=== PATIENT | female | born 1935 | race Caucasian/White ===

== ENCOUNTER → 2016-12-03 | Outpatient (CLI) | payer OTHER ==
[~2016-12-03] MED LIST: ACCL20 PO; ALBUAER2 INH; AVP150 PO; AZMINH INH; PRM625 PO; SYN25 PO
[2016-12-03 14:32] LABS: BLOOD UREA NITROGEN 21 mg/dl (7-18); BUN/CREATININE RATIO 23.3 (10-20); CARBON DIOXIDE 29 mmol/L (21-32); CHLORIDE 105 mmol/L (98-107); CREATININE 0.92 mg/dl (0.60-1.20); GLUCOSE 96 mg/dl (70-99); POTASSIUM 4.2 mmol/L (3.5-5.1); SODIUM 140 mmol/L (136-145)
[2016-12-03 14:43] LABS: ALB/GLOB RATIO 1.4 (0.9-2); ALKALINE PHOSPHATASE 44 U/L (45-117); ALT/SGPT 22 U/L (12-78); AST/SGOT 15 U/L (15-37); CHOLESTEROL 281 mg/dl (0-200); CHOLESTEROL/HDL RATIO 3.5; HDL CHOLESTEROL 81 mg/dl; LDL CHOLESTEROL CALCULATED 171 mg/dl; TRIGLYCERIDES 145 mg/dl (0-150); VERY LOW DENSITY LIPOPROT CALC 29 mg/dl
[2016-12-03 15:09] LABS: CALCIUM 9.5 mg/dl (8.5-10.1)
== END | disposition home or self-care (01) ==
LOC: C.LABBC 09:27
PROVIDERS: ATTEND Internal Medicine
DX: E55.9 Vitamin D deficiency, unspecified (principal)

== ENCOUNTER → 2017-12-24 | Outpatient (CLI) | payer OTHER ==
[2017-12-24 13:37] LABS: BASO % 0.5 %; BASO ABS # 0.03 K/uL (0-0.2); EOS % 5.3 %; EOS ABS # 0.33 K/uL (0-0.5); HEMATOCRIT 38.4 % (37-47); HEMOGLOBIN 12.3 g/dL (12.0-16.0); IG# 0.02 K/uL (0.00-0.02); LYMPH % 24.4 %; LYMPH ABS # 1.51 K/uL (1.2-3.4); MEAN CELL VOLUME 100.5 fL (80-100); MEAN CORPUSCULAR HEMOGLOBIN 32.2 pg (25-34); MEAN PLATELET VOLUME 11.3 fL (7.4-10.4); MONO ABS # 0.62 K/uL (0.11-0.59); NEUT % 59.5 %; NEUT ABS # 3.68 K/uL (1.4-6.5); PLATELET COUNT 181 K/uL (130-400); RED CELL DISTRIBUTION WIDTH CV 13.4 % (11.5-14.5); WHITE BLOOD COUNT 6.19 K/uL (4.8-10.8)
[2017-12-24 14:37] LABS: ALBUMIN 3.9 gm/dl (3.4-5.0); ALKALINE PHOSPHATASE 42 U/L (45-117); ALT/SGPT 23 U/L (12-78); AST/SGOT 17 U/L (15-37); BLOOD UREA NITROGEN 23 mg/dl (7-18); CARBON DIOXIDE 25 mmol/L (21-32); CREATININE 0.94 mg/dl (0.60-1.20); GLUCOSE 87 mg/dl (70-99); POTASSIUM 4.2 mmol/L (3.5-5.1); SODIUM 138 mmol/L (136-145)
[2017-12-24 14:48] LABS: CHOLESTEROL 296 mg/dl (0-200); LDL CHOLESTEROL CALCULATED 186 mg/dl; TOTAL PROTEIN 7.2 gm/dl (6.4-8.2)
== END | disposition home or self-care (01) ==
LOC: C.LABBC 09:24
PROVIDERS: ATTEND Internal Medicine
DX: J45.909 Unspecified asthma, uncomplicated (principal); E03.9 Hypothyroidism, unspecified; E78.5 Hyperlipidemia, unspecified; J44.9 Chronic obstructive pulmonary disease, unspecified; I10 Essential (primary) hypertension; E55.9 Vitamin D deficiency, unspecified

== ENCOUNTER 2022-02-06 09:47 | Inpatient (IN) ==
--- NOTE | 2022-02-03 09:58 | Anesthesiology Consultation ---
Date of Service February 03, 2022 Assessment & Plan (1) Encounter for pre-operative examination: - s/p EGD 01/09/22, no postop issues per anesthesia progress note-diagnosed with pancreatic cancer. - cardio 12/08/21 [facility]: "...loop recorder interrogation 12/01/2021 that had showed persistence of sinus rhythm...right carotid bruit to today's examination...will obtain carotid ultrasound..." - Carotid doppler 12/08/21 R ICA less than 50% stenosis Left ICA no hemodynamically significant stenosis - cardio 03/26/21 [facility]: "...Atrial fibrillation...in her record from [place]...only documented episode...on amiodarone and reduced dose apixaban...No clinical symptoms at the time of her arrhythmia or since. Interrogation of her device today did not reveal any detected arrhythmias...Coronary disease...did not appear to have symptoms of coronary insufficiency or angina leading up to her evaluation...reduced LV systolic function and regional wall motion abnormalities. No current symptoms of coronary disease...known to have worsening asthma with aspirin use...continue her Brilinta and apixaban...ischemic cardiomyopathy: Well compensated currently...on carvedilol, Entresto and spironolactone...scheduled for re-evaluation of her LV function in [place]. 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 Patient vaccinated. Surgeon arranging preop COVID testing, scheduled 01/07/2022. Awaiting results. Chart Review Chart Review: Acceptable Risk for Surgery and Patient NOT seen in Pre Admission Testing History Surgery Operation Date: 02/06/22 14:45 Proposed Procedures p Endoscopic Retrograde Cholangiopancreatogram - Anisha Moulton DO Height/Weight Height: 5 ft 4 in Weight: 51.256 kg Allergies Allergy/AdvReac Type Severity Reaction Status Date / Time NSAIDS (Non-Steroidal Allergy Intermediate uler Verified 01/26/22 10:22 Anti-Inflamma Sulfa (Sulfonamide Allergy Intermediate Difficulty Verified 01/26/22 10:22 Antibiotics) Breathing sulfamethoxazole Allergy Intermediate Difficulty Verified 01/26/22 10:22 Breathing aspirin Allergy Unknown BREATHING Verified 01/26/22 10:22 DIFFICULTIES Penicillins Allergy Unknown AMPICILLIN Verified 01/26/22 10:22 rofecoxib Allergy Unknown RASH AND Verified 01/26/22 10:22 ASTHMA peanut AdvReac Unknown ORAL Verified 01/26/22 10:22 SWELLING soy AdvReac Unknown ORAL Verified 01/26/22 10:22 SWELLING Medications Home Medications Medication Instructions Recorded Confirmed Last Taken apixaban 2.5 mg tablet (Eliquis) 2.5 mg PO BID 02/24/21 02/03/22 01/07/22 cyanocobalamin (vitamin B-12) 1,000 mcg PO QAM 02/24/21 02/03/22 01/08/22 08:00 1,000 mcg capsule sacubitril 24 mg-valsartan 26 mg 1 tab PO QAM 02/24/21 02/03/22 01/08/22 21:00 tablet (Entresto) albuterol sulfate 90 mcg/actuation See Rx Instructions INH .COMPLEX 02/28/21 02/03/22 01/08/22 08:00 aerosol inhaler (Ventolin HFA) PRN #8.5 gm budesonide-formoterol HFA 160 1 puff INHALATION PM g 04/02/21 02/03/22 01/08/22 21:00 mcg-4.5 mcg/actuation aerosol inhaler (Symbicort) cholecalciferol (vitamin D3) 50 3,000 mcg PO QAM cap 04/02/21 02/03/22 Unknown mcg (2,000 unit) capsule Accolate 20 mg tablet (zafirlukast) 20 mg PO BID #180 tab NS 06/30/21 02/03/22 01/09/22 06:00 bisoprolol fumarate 5 mg tablet 5 mg PO QAM 09/22/21 02/03/22 01/08/22 08:00 omeprazole 40 mg capsule,delayed 40 mg PO DAILY PRN 09/22/21 02/03/22 01/09/22 02:00 release spironolactone 25 mg tablet 25 mg PO QAM tab 09/22/21 02/03/22 Unknown atorvastatin 10 mg tablet 20 mg PO QPM tab 12/19/21 02/03/2201/08/22 21:00 clopidogrel 75 mg tablet (Plavix) 75 mg PO QAM 12/19/21 02/03/22 01/07/22 levothyroxine 75 mcg tablet 75 mcg PO QAM 01/07/22 02/03/22 01/09/22 03:00 (Synthroid) vit A 9,650 unit-vit C 195 mg-vit 1 cap PO QAM 01/07/22 02/03/22 01/08/22 08:00 E 95 trao-gjbxze-yxei-zn-photocopying equipment repairer capsule hydrocortisone 2.5 % topical 1 applic TOPICAL BID #453.6 g 01/26/22 02/03/22 Unknown ointment Past Medical History Medical History (Updated 02/03/22 @ 09:51 by Rossana Fields PA-C) Atrial fibrillation with RVR left chest - Loop recorder > follows with Dr. Krishnamurthy > Eliquis CHF (congestive heart failure) EF 60% on 2020 echo Coronary artery disease s/p stent 11/2020 for 99% mid LAD lesion, follows with [facility] History of ischemic cardiomyopathy well compensated per [facility] HTN (hypertension) Hyperlipidemia Hypothyroidism LBBB (left bundle branch block) per records present since at least 11/2020 Osteopenia PAD (peripheral artery disease) Pancreatic cancer Pulmonary hypertension mild, 03/2021 echo Severe chronic obstructive pulmonary disease rare res inh use Past Family History Family History Father , age 50 No problems noted. Mother , age 58-suicide No problems noted. Other Hypertension Multiple sclerosis Prostate cancer Denies family history of Ovarian cancer Breast cancer Lung cancer Colorectal cancer Past Surgical History Surgical History H/O basal cell carcinoma excision History of cataract surgery bilat History of colonoscopy History of hip replacement bilat History of repair of rotator cuff bilat History of total abdominal hysterectomy Hx of angioplasty Jul [address] Krishnamurthy of right leg Stented coronary artery CHEPE to LAD > November 2020 - [facility] with Dr. Hammond Social History Smoking Status: Never smoker Do You Dip or Chew Tobacco: No Hx Alcohol Use: No Alcohol type: beer and wine Hx Substance Use: No substance use type: does not use Lab Results Anesthesia Preop Results Results Anesthesia Widget: WBC 6.60 K/uL (4.8-10.8) 12/26/21 Hgb 10.5 g/dL (12.0-16.0) L 12/26/21 Hct 33.7 % (37-47) L 12/26/21 Plt 196 K/uL (130-400) 12/26/21 Na 135 mmol/L (136-145) L 01/09/22 K 4.7 mmol/L (3.5-5.1) 01/09/22 Cl 103 mmol/L (98-107) 01/09/22 CO2 26 mmol/L (21-32) 01/09/22 BUN 24 mg/dl (6-23) H 01/09/22 Creat 0.91 mg/dl (0.6-1.2) 01/09/22 Glucose Level 110 mg/dl (70-99(Fasting)) H 01/09/22 Testing Electrocardiogram Date: 12/26/21 NSR, rate 75 bpm Left axis deviation LBBB-new since 2009 ECG Chest X-Ray Date: 12/26/21 The cardiac silhouette is mildly enlarged. There is mild emphysema. No pleural effusions. No pneumothorax. The lungs are clear. IMPRESSION: Mild cardiomegaly. Otherwise, no acute process within the chest. Echocardiogram Date: 04/09/21 EF 60% Mild mitral regurgitation Mild pulmonary hypertension Mild tricuspid regurgitation Other Testing Abdomen/pelvis CT 01/02/22 Cardiomegaly. Mild bibasilar atelectasis. No pneumatosis or pneumoperitoneum. Superior splenic cleft. The spleen measures within the upper limits of normal. 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 Unremarkable adrenal glands. Left hepatic lobe cysts. No hepatic metastasis. Contrast-filled gallbladder with wall thickening. Patent portal vein. There is marked narrowing at the portal splenic confluence with effacement of the superior mesenteric vein. There is marked narrowing involving the medial aspect of the splenic vein on image 114 series 5. Numerous venous collaterals noted within the abdomen. There is a heterogeneous mass involving the pancreatic neck measuring up to approximately 3.6 cm which circumferentially encases the superior mesenteric artery. Mild luminal narrowing involving a branch of the superior mesenteric artery on image 147. There is upstream pancreatic ductal dilation measuring up to 7 mm with associated pancreatic gastric. The pancreatic head and uncinate process appear preserved. There is moderate intrahepatic and extrahepatic biliary ductal dilation with abrupt narrowing seen on image 100. Pathologically enlarged mesenteric lymph nodes measure up to 1.3 x 1.8 cm. Distended contrast and debris filled stomach and proximal duodenum is noted with marked narrowing at the duodenojejunal junction, unchanged from the prior study. Distal esophagus is also distended with distal esophageal wall thickening. Colonic diverticulosis without acute diverticulitis. Unchanged wall thickening of the cecum and ascending colon suggestive of venous engorgement. Normal appendix. Small volume of abdominal pelvic ascites. Bilateral hip total joint arthroplasties. No destructive bone lesions. Degenerative changes of the spine. IMPRESSION: 1.3.6 cm pancreatic neck mass is suggestive of adenocarcinoma. This results in upstream pancreatic atrophy and pancreatic ductal dilation. Additionally, there is moderate intrahepatic and extrahepatic biliary ductal dilation. Follow-up GI consultation recommended. 2. The mass circumferentially encases the superior mesenteric artery and markedly narrows the portal splenic confluence, splenic and superior mesenteric veins with abdominal collateral vessels. 3. Distended stomach and duodenum redemonstrated suspicious for obstruction. 4. Distended contrast filled gallbladder with wall thickening and probable vicarious excretion. 5. Mesenteric adenopathy suggests lymphatic metastasis. 6. Small volume of abdominal pelvic ascites. 7. Additional findings as above. Chest CTA 12/26/21 Noncontrast imaging through the chest shows no evidence for an intramural hematoma within the thoracic aorta. There is mild calcified plaque within the thoracic aorta. There is moderate to severe calcified plaque within the coronary arteries. Normal caliber thoracic aorta with no evidence for dissection. No pleural or pericardial effusions. The heart is mildly enlarged. No filling defects within the central pulmonary arteries to suggest a pulmonary embolus. Small amount of fluid within the mildly thickened esophagus. There is a small to moderate hiatus hernia. The visualized liver and spleen are unremarkable. There is trace perisplenic fluid. No mediastinal or hilar lymphadenopathy. No fractures within the visualized osseous structures. The central airways are patent. No pneumothorax. Mild biapical pleural-parenchymal scarlike densities are noted. Mild emphysema. Subtle 3.8 cm groundglass density within the right upper lobe on image 127. A few small bibasilar linear densities consistent with subsegmental atelectasis. No evidence for pulmonary edema. Small bleb/bulla seen within the left lower lobe. IMPRESSION: 1. No evidence for an aortic dissection. 2. Small moderate hiatus hernia. 3. Mild thickening of the esophagus which is partially filled with fluid. This may represent an esophagitis with associated esophageal dysmotility or gastroesophageal reflux. 4. Trace perisplenic fluid. 5. Subtle 3.8 cm groundglass density within the right upper lobe. This could represent scarring or a mild pneumonitis. [address] follow-up recommended to ensure resolution. 6. Mild emphysema.
[~2022-02-06 09:47] MED LIST changes: -ACCL20 PO; -ALBUAER2 INH; -AVP150 PO; -AZMINH INH; +CIPROFLOXACIN / D5W 400 MG/200 ML BAG IV SCH; +LR 15ML/HR IV SCH; -PRM625 PO; -SYN25 PO
--- NOTE | 2022-02-06 11:14 | History & Physical Report ---
Date of Service February 06, 2022 History of Present Illness Chief Complaint: Obstructive jaundice Primary Care Provider: Rubio Zambrano MD The patient is an 86-year-old female who recently developed obstructive jaundice after presenting with a pancreatic mass. The patient notes that she is becoming quite weak having some difficulty with nausea with eating in addition to epigastric discomfort. Allergies Allergy/AdvReac Type Severity Reaction Status Date / Time NSAIDS (Non-Steroidal Allergy Intermediate uler Verified 02/06/22 10:12 Anti-Inflamma Sulfa (Sulfonamide Allergy Intermediate Difficulty Verified 02/06/22 10:12 Antibiotics) Breathing sulfamethoxazole Allergy Intermediate Difficulty Verified 02/06/22 10:12 Breathing aspirin Allergy Unknown BREATHING Verified 02/06/22 10:12 DIFFICULTIES Penicillins Allergy Unknown AMPICILLIN Verified 02/06/22 10:12 rofecoxib Allergy Unknown RASH AND Verified 02/06/22 10:12 ASTHMA peanut AdvReac Unknown ORAL Verified 02/06/22 10:12 SWELLING soy AdvReac Unknown ORAL Verified 02/06/22 10:12 SWELLING Home Medications Medication Instructions Recorded Confirmed Type apixaban 2.5 mg tablet (Eliquis) 2.5 mg PO BID 02/24/21 02/06/22 History cyanocobalamin (vitamin B-12) 1,000 mcg PO QAM 02/24/21 02/06/22 History 1,000 mcg capsule sacubitril 24 mg-valsartan 26 mg 1 tab PO QAM 02/24/21 02/06/22 History tablet (Entresto) albuterol sulfate 90 mcg/actuation See Rx Instructions INH .COMPLEX 02/28/21 02/06/22 Rx aerosol inhaler (Ventolin HFA) PRN #8.5 gm budesonide-formoterol HFA 160 1 puff INHALATION PM g 04/02/21 02/06/22 History mcg-4.5 mcg/actuation aerosol inhaler (Symbicort) cholecalciferol (vitamin D3) 50 3,000 mcg PO QAM cap 04/02/21 02/06/22 History mcg (2,000 unit) capsule Accolate 20 mg tablet (zafirlukast) 20 mg PO BID #180 tab NS 06/30/21 02/06/22 Rx bisoprolol fumarate 5 mg tablet 5 mg PO QAM 09/22/21 02/06/22 History omeprazole 40 mg capsule,delayed 40 mg PO DAILY PRN 09/22/21 02/06/22 History release spironolactone 25 mg tablet 25 mg PO QAM tab 09/22/21 02/06/22 History atorvastatin 10 mg tablet 20 mg PO QPM tab 12/19/21 02/06/22 History clopidogrel 75 mg tablet (Plavix) 75 mg PO QAM 12/19/21 02/06/22 History levothyroxine 75 mcg tablet 75 mcg PO QAM 01/07/22 02/06/22 History (Synthroid) vit A 9,650 unit-vit C 195 mg-vit 1 cap PO QAM 01/07/22 02/06/22 History E 95 rrza-rzozio-fjab-zn-marketing copywriter capsule hydrocortisone 2.5 % topical 1 applic TOPICAL BID #453.6 g 01/26/22 02/06/22 Rx ointment Past Med/Surg History Medical History Atrial fibrillation with RVR left chest - Loop recorder > follows with Dr. Krishnamurthy > Eliquis CHF (congestive heart failure) EF 60% on 2020 echo Coronary artery disease s/p stent 11/2020 for 99% mid LAD lesion, follows [place] [facility] History of ischemic cardiomyopathy well compensated per [facility] HTN (hypertension) Hyperlipidemia Hypothyroidism LBBB (left bundle branch block) per records present since at least 11/2020 Osteopenia PAD (peripheral artery disease) Pancreatic cancer Pulmonary hypertension mild, 03/2021 echo Severe chronic obstructive pulmonary disease rare res inh use Surgical History H/O basal cell carcinoma excision History of cataract surgery bilat History of colonoscopy History of hip replacement bilat History of repair of rotator cuff bilat History of total abdominal hysterectomy Hx of angioplasty Jul [address] Krishnamurthy of right leg Stented coronary artery CHEPE to LAD > November 2020 - [facility] with Dr. Hammond Family History Father , age 50 No problems noted. Mother , age 58-suicide No problems noted. 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 Required: No Beliefs That Will Affect Care: None marital status: Current Living Situation: Alone current occupational status: retired current occupation: Retired Other Information That Helps Us Care for You: No Feels Safe at Home: Yes Safety Concerns: Feels Safe At This Time Childhood Exposure to Second-Hand Smoke: No caffeine: No Dental Care, Regularly: Yes Physical Activity Frequency: 3-4 Times per Week Seatbelt Use: always Sunscreen Use: Yes Assistive Devices: Cane, Glasses and Hearing Aid - Bilateral Physical Exam Constitutional: WD/WN, vitals as above Eyes: mild scleral icterus Neck: trachea midline, no thyromegaly Respiratory: Auscultation: + diminished lung sounds; no crackles and no rales Cardiovascular: Heart Sounds: + murmur Gastrointestinal (Abdomen): Percussion/Palpation: + abdomen tender and abdomen soft; no guarding and abdomen not rigid Results & Data ([facility]) Vital Signs (Past 12 Hours) Vital Signs Temp Pulse Resp BP Pulse Ox 02/06/22 10:35 36.7 C 69 20 140/50 L 99 Laboratory Results Labs 01/26/22 CA 19-9 <35.0 U/mL 1,533.0 High BUN 6 - 20 mg/dL 33High Creatinine 0.5 - 1.0 mg/dL 1.2High Estimated Glomerular Filtration Rate >=60 mL/min 46Low Comment: eGFR is calculated based on the CKD-EPI 2020 equation Sodium 135 - 146 mmol/L 140 Potassium 3.5 - 5.1 mmol/L 4.3 Chloride 98 - 107 mmol/L 108High CO2 22 - 32 mmol/L 22 Anion Gap 7 - 15 mmol/L 10 Glucose 70 - 120 mg/dL 120 Albumin 3.8 - 5.0 g/dL 3.9 AST 10 - 35 U/L 417High Alkaline Phosphatase 35 - 130 U/L 838High Bilirubin, Total <=1.2 mg/dL 2.6High Calcium 8.4 - 10.2 mg/dL 9.8 Protein 6.0 - 8.3 g/dL 6.7 ALT 10 - 35 U/L 657High WBC 4.00 - 10.80 K/uL 7.09 RBC 3.85 - 5.15 M/uL 3.39Low HGB 12.0 - 15.3 g/dL 10.5Low HCT 36.0 - 45.2 % 32.7Low MCV 81.5 - 97.5 fL 96.5 MCH 27.0 - 34.0 pg 31.0 MCHC 32.0 - 36.0 g/dL 32.1 RDW 11.5 - 15.5 % 15.6High PLT 140 - 400 K/uL 191 Diagnostic Findings EUS Finding (December 2021) A round mass was identified in the uncinate process of the pancreas. The mass was heterogenous. The mass measured 36 mm by 34 mm in maximal cross-sectional diameter. The endosonographic borders were poorly-defined. There was sonographic evidence suggesting invasion into the superior mesenteric artery (manifested by encasement). An intact interface was seen between the mass and the celiac trunk suggesting a lack of invasion.
[2022-02-06] MEDS ORDERED: INDOMETHACIN 50 MG SUPP PR ONE (11:18)
[2022-02-06] MEDS ORDERED: fentaNYL citrate 100 MCG/2 ML VIAL ONE (12:44)
[2022-02-06] MEDS ORDERED: LABETALOL HCL IV 5 MG/ML 20ML IV PRN (13:03)
[2022-02-06] MEDS ORDERED: ePHEDrine sulfate 50 MG/ML AMP IV PRN (13:03)
[2022-02-06] MEDS ORDERED: NALOXONE HCL 0.4 MG/1 ML VIAL/CARP IV PRN (13:03)
[2022-02-06] MEDS ORDERED: ONDANSETRON INJ 2 MG/ML 2 ML VIAL IV PRN ×2 (13:03→15:34)
[2022-02-06] MEDS ORDERED: ATROPINE SULFATE 0.1 MG/ML 10ML SYR IV PRN (13:03)
[2022-02-06] MEDS ORDERED: PROMETHAZINE HCL 12.5 MG in SODIUM CHLORIDE 0.9% 50 ML IV PRN (13:03)
[2022-02-06] MEDS ORDERED: fentaNYL citrate 100 MCG/2 ML VIAL IV PRN (13:03)
--- NOTE | 2022-02-06 13:19 | Communication Note ---
Date of Service: February 06, 2022 The patient, her daughter and I discusses ERCP and possible EGD with biliary stent placemen and possible duodenal stent placemnt. risks: bleeding, infection, perforation, pain, pancreatitis, and failed biliary cannulation.
[2022-02-06] MEDS ORDERED: PROPOFOL IV EMULSION 10 MG/ML 20 ML VIAL IV ONE (13:34)
[2022-02-06] MEDS ORDERED: GLUCAGON FOR INJ 1 MG VIAL ONE (14:04)
--- NOTE | 2022-02-06 14:05 | Post Operative Brief Note ---
Immediate Post Op Note v1 Date of Surgery February 06, 2022 Pre & Post Diagnosis Operation Date: 02/06/22 11:00 Pre-Op Diagnosis: Biliary Obstruction Post-Op Diagnosis: Biliary Obstruction I identified the patient and participated in the time-out.: Yes Procedure Operation Date: 02/06/22 11:00 Actual Procedures p Endoscopic Retrograde Cholangiopancreato(Not Applicable) - Anisha Moulton DO Surgeon Anisha Moulton DO Circulating Nurse none Estimated Blood Loss 0 Findings Consistent with Post-Op Diagnosis
--- NOTE | 2022-02-06 14:14 | GI REPORT ---
Patient Name: Kristyn Alfaro Procedure Date: 02/06/2022 11:29 AM Date of : 1935 Admit Type: Outpatient Age: 86 Gender: Female Attending MD: Anisha Moulton DO Procedure: ERCP Providers: Anisha Moulton DO Referring MD: Arturo Moctezuma Md Indications: Abdominal pain of suspected biliary origin, Jaundice, Malignant tumor of the head of pancreas Medicines: General Anesthesia Complications: No immediate complications. Estimated blood loss: Minimal. Estimated Blood Loss: Estimated blood loss was minimal. Procedure: Pre-Anesthesia Assessment: - Prior to the procedure, a History and Physical was performed, and patient medications, allergies and sensitivities were reviewed. The patient's tolerance of previous anesthesia was reviewed. - The risks and benefits of the procedure and the sedation options and risks were discussed with the patient. All questions were answered and informed consent was obtained. - Patient identification and proposed procedure were verified prior to the procedure by the physician, the nurse and the anesthesiologist. The procedure was verified in the procedure room. - Pre-procedure physical examination revealed no contraindications to sedation. - ASA Grade Assessment: IV - A patient with severe systemic disease that is a constant threat to life. - After reviewing the risks and benefits, the patient was deemed in satisfactory condition to undergo the procedure. - The anesthesia plan was to use general anesthesia. - Immediately prior to administration of medications, the patient was re-assessed for adequacy to receive sedatives. - The heart rate, respiratory rate, oxygen saturations, blood pressure, adequacy of pulmonary ventilation, and response to care were monitored throughout the procedure. - The physical status of the patient was re-assessed after the procedure. After obtaining informed consent, the scope was passed under direct vision. Throughout the procedure, the patient's blood pressure, pulse, and oxygen saturations were monitored continuously. The Duodenoscope was introduced through the mouth, and advanced to the duodenum and used to inject contrast into the bile duct. The ERCP was accomplished without difficulty. The patient tolerated the procedure well. The Duodenoscope was introduced through the mouth, and advanced to the duodenum and used to inject contrast into the bile duct and ventral pancreatic duct. The ERCP was accomplished without difficulty. Findings: The director of scout work film was normal. The esophagus was successfully intubated under direct vision without detailed examination of the pharynx, larynx, and associated structures, and upper GI tract. The upper GI tract was grossly normal. The major papilla was normal. The ventral pancreatic duct was inadvertently cannulated with the short-nosed traction sphincterotome and guidewire without any complications, this was left in place to aid in biliary cannulation. The bile duct was deeply cannulated with the short-nosed traction sphincterotome and guidewire. Contrast was injected. I personally interpreted the bile duct images. Contrast extended to the hepatic ducts. The lower third of the main bile duct contained a single segmental stenosis 15 mm in length. The common hepatic duct contained a single segmental stenosis 10 mm in length. The left and right hepatic ducts and all intrahepatic branches were moderately dilated and diffusely dilated. The largest diameter was 12 mm. Biliary sphincterotomy was made with a monofilament CleverCut distal wire sphincterotome using ERBE electrocautery. There was no post-sphincterotomy bleeding. One 10 Fr by 8 cm bare metal stent was placed 8 cm into the common bile duct (Modenus, REF [id number], Lot [id number]). Bile flowed through the stent. The stent was in good position. During the manipulation process cannulation of the pancreatic duct was lost, thus no pancreatic stent was placed. The endoscope was withdrawn from the patient. Indomethacin 100 mg was given via suppository to decrease the risk of post-ERCP pancreatitis (PEP). Impression: - The major papilla appeared normal. - A single segmental biliary stricture was found in the lower third of the main bile duct. The stricture was malignant appearing. - A single segmental biliary stricture was found in the common hepatic duct. The stricture was malignant appearing. - The left and right hepatic ducts and all intrahepatic branches were moderately dilated. - A biliary sphincterotomy was performed. - One bare metal stent was placed into the common bile duct. - Indomethacin given to decrease risk of post-ERCP pancreatitis. Recommendation: - Avoid aspirin and nonsteroidal anti-inflammatory medicines for 5 days. - Clear liquid diet today. - Use broad spectrum antibiotics for 3 days. - Observe patient's clinical course following today's ERCP with therapeutic intervention. Anisha Moulton D.O. Anisha Moulton, 02/06/2022 2:14:24 PM This report has been signed electronically. Note Initiated On: 02/06/2022 11:29 AM Number of Addenda: 0 I attest to the content of the Intraoperative Record and orders documented therein, exceptions below {[id number]}
--- NOTE | 2022-02-06 14:40 | Anesthesiology Progress Note ---
Date of Service February 06, 2022 Anesthesia Post Procedure Vital Signs Vital Signs: Temp Pulse Pulse Resp BP Pulse Ox 02/06/22 14:30 66 20 113/50 L 96 02/06/22 14:20 67 16 122/44 L 100 02/06/22 14:10 66 13 128/62 100 02/06/22 14:04 37.2 C 68 23 136/73 100 02/06/22 10:35 36.7 C 69 20 140/50 L 99 Transfer of Care Handoff Completed per policy Notes Mental Status: alert / awake / arousable Patient Amnestic to Procedure: Yes Nausea / Vomiting: adequately controlled Pain: adequately controlled Airway Patency, RR, SpO2: stable & adequate BP & HR: stable & adequate Hydration State: stable & adequate Anesthetic Complications: no major complications apparent
--- NOTE | 2022-02-06 15:15 | Fluoroscopy Report ---
[place] ERCP biliary ductal CLINICAL HISTORY: ERCP IN OR COMPARISON STUDY: CT of the abdomen and pelvis from 01/02/2022 FLUOROSCOPY TIME: 95 seconds. FLUOROSCOPIC IMAGES: 6 fluoroscopic spot images FINDINGS: ERCP was performed with placement of the stent within the distal common bile duct through t he pancreatic head. IMPRESSION: Status post placement of a stent within the common bile duct. ACT 112: Negative or not required by law. Electronically signed by: Jay Joe M.D. 02/06/2022 3:12 PM
[2022-02-06] MEDS ORDERED: HYDROmorphone HCL 2 MG TAB PO PRN (15:34)
--- NOTE | 2022-02-06 16:31 | History & Physical Report ---
Date of Service February 06, 2022 Assessment & Plan (1) Pancreatic cancer: Plan: Diagnosed in 12/2021. Has seen palliative care recently. Patient is not interested in chemotherapy, but reports she has plans to see radiation oncology. Pain, nausea, and vomiting are major symptoms presently. - S/p ERCP with biliary stent placement on 02/[address] Moulton - Continue Cipro x 3 days per GI note - Clear liquid diet today, then advance per GI - Palliative care consult - Will use hydrocodone 1 mg PO Q4h PRN as she reports 2 mg dosage makes her groggy - PT/OT as she is having functional limitations from her symptoms (2) Coronary artery disease: Plan: S/p PCI in 11/2020. - Holding home Plavix for now as she reports possible upcoming procedures in addition to today's ERCP - Continue beta-oswaldo & statin (3) Paroxysmal atrial fibrillation: Plan: Reports no further episodes since her CT in 2020. - Continue beta-oswaldo - Hold anticoagulation (4) Congestive heart failure: Plan: Per her report, had some level of reduced EF after her CT. Last echo I see is fr om 03/2021 with EF 60%. - Continue beta-oswaldo and Entresto (not sure why she is on daily dosing vs. BID) (5) HTN (hypertension): Plan: BP in surgical recovery was 125/60. - Continue above meds (6) Severe chronic obstructive pulmonary disease: Plan: No wheezing on exam today. - Continue budesonide-formoterol (or formulary equivalent) - Albuterol PRN (7) Hypothyroidism: Plan: TSH was 2.0 in 10/2021. No signs/symptoms of hypo-/hyperthyroidism. - Continue home Synthroid 75 mcg (8) GERD (gastroesophageal reflux disease): Plan: - Continue PPI (9) DVT prophylaxis: Plan: SCDs - Holding heparin in setting of recent procedure. Have reached out to GI to see if Lovenox is ok, as she is high risk of DVT given age and active cancer. Patient is DNR/DNI as per discussion with the patient. History of Present Illness Primary Care Provider: Rubio Zambrano MD 86yo F w/ hx of CAD, COPD, known pancreatic cancer who presents after an ERCP with failure to thrive and ambulatory dysfunction. The patient was in [place] with her daughter in 11/2020 when she had shortness of breath and went to the ER. She was diagnosed as having an CT (unknown whether it was an NSTEMI or STEMI) and found to have cardiomyopathy and afib. She was diagnosed with pancreatic cancer in 12/2021 when she began to have abdominal pain. Initially, it was thought this was due to GERD, but CT a/p was done on 01/02/2022 which showed a large pancreatic mass. She underwent EUS on 01/09 with the diagnosis of pancreatic cancer. Since that time, she has struggled with continued abdominal pain. She saw [facility] palliative care on 02/02/2022 who recommended oral hydromorphone. She reports this does improve the pain, but that she cannot walk well when she is taking the pain medication. She also notes that she has had increasing nausea and vomiting with any food or drink intake. She also notes some diarrhea. Denies fever/chills, denies shortness of breath or chest pain, denies KING, vision changes, denies any MSK complaints. Allergies Allergy/AdvReac Type Severity Reaction Status Date / Time NSAIDS (Non-Steroidal Allergy Intermediate uler Verified 02/06/22 10:12 Anti-Inflamma Sulfa (Sulfonamide Allergy Intermediate Difficulty Verified 02/06/22 10:12 Antibiotics) Breathing sulfamethoxazole Allergy Intermediate Difficulty Verified 02/06/22 10:12 Breathing aspirin Allergy Unknown BREATHING Verified 02/06/22 10:12 DIFFICULTIES Penicillins Allergy Unknown AMPICILLIN Verified 02/06/22 10:12 rofecoxib Allergy Unknown RASH AND Verified 02/06/22 10:12 ASTHMA peanut AdvReac Unknown ORAL Verified 02/06/22 10:12 SWELLING soy AdvReac Unknown ORAL Verified 02/06/22 10:12 SWELLING Home Medications Medication Instructions Recorded Confirmed Type apixaban 2.5 mg tablet (Eliquis) 2.5 mg PO BID 02/24/21 02/06/22 History cyanocobalamin (vitamin B-12) 1,000 mcg PO QAM 02/24/21 02/06/22 History 1,000 mcg capsule sacubitril 24 mg-valsartan 26 mg 1 tab PO QAM 02/24/21 02/06/22 History tablet (Entresto) albuterol sulfate 90 mcg/actuation See Rx Instructions INH .COMPLEX 02/28/21 02/06/22 Rx aerosol inhaler (Ventolin HFA) PRN #8.5 gm budesonide-formoterol HFA 160 1 puff INHALATION PM g 04/02/21 02/06/22 History mcg-4.5 mcg/actuation aerosol inhaler (Symbicort) cholecalciferol (vitamin D3) 50 3,000 mcg PO QAM cap 04/02/21 02/06/22 History mcg (2,000 unit) capsule Accolate 20 mg tablet (zafirlukast) 20 mg PO BID #180 tab NS 06/30/21 02/06/22 Rx bisoprolol fumarate 5 mg tablet 5 mg PO QAM 09/22/21 02/06/22 History omeprazole 40 mg capsule,delayed 40 mg PO DAILY PRN 09/22/21 02/06/22 History release spironolactone 25 mg tablet 25 mg PO QAM tab 09/22/21 02/06/22 History atorvastatin 10 mg tablet 20 mg PO QPM tab 12/19/21 02/06/22 History clopidogrel 75 mg tablet (Plavix) 75 mg PO QAM 12/19/21 02/06/22 History levothyroxine 75 mcg tablet 75 mcg PO QAM 01/07/22 02/06/22 History (Synthroid) vit A 9,650 unit-vit C 195 mg-vit 1 cap PO QAM 01/07/22 02/06/22 History E 95 jzyh-koagnt-lnpx-zn-type copyist capsule hydrocortisone 2.5 % topical 1 applic TOPICAL BID #453.6 g 01/26/22 02/06/22 Rx ointment ciprofloxacin HCl 500 mg tablet 500 mg PO BID #6 tab 02/06/22 Rx (Cipro) Past Med/Surg History Medical History (Updated 02/06/22 @ 16:44 by Brandan Hyde MD) Atrial fibrillation with RVR left chest - Loop recorder > follows with Dr. Krishnamurthy > Eliquis CHF (congestive heart failure) EF 60% on 2020 echo Coronary artery disease s/p stent 11/2020 for 99% mid LAD lesion, follows with [facility] History of ischemic cardiomyopathy well compensated per [facility] HTN (hypertension) Hyperlipidemia Hypothyroidism LBBB (left bundle branch block) per records present since at least 11/2020 Osteopenia PAD (peripheral artery disease) Pancreatic cancer Pulmonary hypertension mild, 03/2021 echo Severe chronic obstructive pulmonary disease rare res inh use Surgical History H/O basal cell carcinoma excision History of cataract surgery bilat History of colonoscopy History of hip replacement bilat History of repair of rotator cuff bilat History of total abdominal hysterectomy Hx of angioplasty Jul [address] Krishnamurthy of right leg Stented coronary artery CHEPE to LAD > November 2020 - [facility] with Dr. Hammond Family History Father , age 50 No problems noted. Mother , age 58-suicide No problems noted. Other Hypertension Multiple sclerosis Prostate cancer Denies family history of Ovarian cancer Breast cancer Lung cancer Colorectal cancer Social History Smoking Status: Never smoker Second Hand Exposure: No; Do You Dip or Chew Tobacco: No; Tobacco Cessation Education Requested by Patient: No Hx Alcohol Use: No Hx Substance Use: No Preferred Language: Cypriot Communication Ability: Effective Visual Impairment: Limited Hearing Ability: Use of Hearing Aid Environmental Advisor Required: No Beliefs That Will Affect Care: None marital status: Current Living Situation: Alone current occupational status: retired current occupation: Retired Other Information That Helps Us Care for You: No Feels Safe at Home: Yes Safety Concerns: Feels Safe At This Time Childhood Exposure to Second-Hand Smoke: No caffeine: No Dental Care, Regularly: Yes Physical Activity Frequency: 3-4 Times per Week Seatbelt Use: always Sunscreen Use: Yes Assistive Devices: Cane, Glasses and Hearing Aid - Bilateral Review of Systems Review of Systems: All systems reviewed & are unremarkable except as noted in HPI & below Physical Exam Constitutional: WD/WN, vitals as above Eyes: EOM intact bilaterally; no conjunctival abnormality ENMT: external ear and nose normal, oropharynx normal Neck: trachea midline, no thyromegaly normal visual inspection Respiratory: normal respiratory effort, lungs clear to auscultation no respiratory distress Cardiovascular: RRR, no murmur, no edema Gastrointestinal (Abdomen): Inspection/Auscultation: abdomen normal to inspection and normal bowel sounds; abdomen not distended Percussion/Palpati on: + abdomen tender and abdomen soft; no guarding and abdomen not rigid Musculoskeletal: no cyanosis or clubbing, extremities motor strength 5/5 Skin: no rashes, warm and dry Neurologic: moves all extremities and awake Psychiatric: Orientation: alert, oriented to person and cooperative Results & Data Results & Data ([facility]) Vital Signs (Past 12 Hours) Vital Signs Temp Pulse Pulse Resp BP Pulse Ox 02/06/22 16:10 72 18 123/61 99 02/06/22 15:31 36.8 C 67 17 120/61 96 02/06/22 14:55 36.9 C 68 18 117/59 L 97 02/06/22 14:40 36.6 C 76 18 127/47 L 97 02/06/22 14:30 66 20 113/50 L 96 02/06/22 14:20 67 16 122/44 L 100 02/06/22 14:10 66 13 128/62 100 02/06/22 14:04 37.2 C 68 23 136/73 100 02/06/22 10:35 36.7 C 69 20 140/50 L 99 Code Status & VTE Plan VTE Prophylaxis Plan VTE Prophylaxis will be ordered: Yes PG Care Time/CCT Total # of Minutes Spent Total Time Spent with Patient: Total time spent is greater than 50% in coordination of care (as documented) at patient's floor/unit and/or counseling patient: Coding Level of Care Code INT OBSERVATION CARE 70M LVL 3 Diagnoses Pancreatic cancer C25.9 Coronary artery disease I25.10 Paroxysmal atrial fibrillation I48.0 Congestive heart failure I50.9 Severe chronic obstructive pulmonary disease J44.9 Hypothyroidism E03.9 DVT prophylaxis Z29.9 GERD (gastroesophageal reflux disease) K21.9 HTN (hypertension) I10
[2022-02-06 19:27] LABS: Hematocrit (blood only) 28.2 % (37-47); Hemoglobin 9.5 g/dL (12.0-16.0); Mean Corpuscular Hgb Conc 33.7 g/dL (32-36); Mean Corpuscular Volume 92.2 fL (80-100); Mean Platelet Volume 11.8 fL (7.4-10.4); Platelet Count 175 K/uL (130-400); RDW Coefficient of Variation 16.7 % (11.5-14.5); RDW Standard Deviation 55.7 fL (36.4-46.3); Red Blood Count 3.06 M/uL (4.2-5.4); White Blood Count 9.08 K/uL (4.8-10.8)
[2022-02-06 19:44] LABS: INR 1.1 (0.9-1.1); Partial Thromboplastin Ratio 0.9; Partial Thromboplastin Time 24.4 Seconds (21.0-31.0); Prothrombin Time 11.9 Seconds (9.0-12.0)
[2022-02-06 19:52] LABS: Albumin Globulin Ratio 1.2 (0.9-2); BUN Creatinine Ratio 24.3 (10-20); Bilirubin,Total 3.6 mg/dl (0.2-1.0); Calcium 8.5 mg/dl (8.5-10.1); Creatinine Clr Calc Pharmacy 11.7 ml/min; Est GFR (African American) 16.4 ml/min; Est GFR (Non-African American) 14.2 ml/min; Globulin 2.6 gm/dl (2.5-4.0); Total Protein 5.6 gm/dl (6.0-8.3)
[2022-02-06] MEDS: ACETAMINOPHEN 500 MG TAB PO PRN ×2 (21:05→21:55)
[2022-02-06] MEDS ORDERED: LACTATED RINGER'S 250 ML IV ONE (21:54)
[2022-02-06] MEDS: CIPROFLOXACIN 500 MG TAB PO SCH (21:56)
[2022-02-06] MEDS ORDERED: LACTATED RINGER'S 1,000 ML IV SCH (22:00)
[2022-02-06 22:23] LABS: Eosinophils # (auto) 0.04 K/uL (0-0.5); Eosinophils % (auto) 0.9 %; Hematocrit (blood only) 28.9 % (37-47); Lymphocytes # (auto) 0.13 K/uL (1.2-3.4); Lymphocytes % (auto) 3.1 %; Mean Corpuscular Hemoglobin 31.8 pg (25-34); Mean Corpuscular Hgb Conc 34.6 g/dL (32-36); Mean Platelet Volume 11.5 fL (7.4-10.4); Neutrophils # (auto) 4.08 K/uL (1.4-6.5); Platelet Count 154 K/uL (130-400); RDW Coefficient of Variation 16.7 % (11.5-14.5); RDW Standard Deviation 56.5 fL (36.4-46.3); Red Blood Count 3.14 M/uL (4.2-5.4); White Blood Count 4.25 K/uL (4.8-10.8)
[2022-02-06] MEDS: FLUTICASONE/VILANTEROL 100/25MCG 14 PUFFS/INHALER INH SCH (22:55)
--- NOTE | 2022-02-06 23:18 | Communication Note ---
Date of Service: February 06, 2022 Notified by patient's RN earlier in the evening that patient's BPs were on the softer side - 80s/40s. Asymptomatic. Checked on patient multiple times - asymptomatic, feeling OK overall albeit some pain. Fully A&O on questioning. BP 80/40s on multiple reads, HR in the 70-80s. Afebrile. Tired-appearing, no pallor, appears dry. Cardiac - NRRR +s1/s2 w/o mrg. Resp - CTAB w/o crackles or wheezes. Abd - soft, mildly distended, non tender. Extremities - no unilateral edema, homens negative, cap refill ~2 seconds in UEs. -- note - elevating legs did increase pressure by +13 mmHg systolic. Admission labs reviewed. RACHEL with BUN 71 / Cr 2.92 noted. Hgb 9.5 on arrival. HoTN- suspect hypovolemic. Thankfully still appearing well perfused. Repeat CBC with Hgb 10 (s/p ERCP) and lactate 1.5 - lower suspicion d/t hemorrhage or septic process but considered w/ recent procedure today. No e/o acute HF or PE at this time. Noted that patient is not currently on AC given recent procedure. -- Start LR - 250cc bolus x 2 and 125cc/hr maintenance rate thereafter. More as needed. Move to MS/Tele for increased monitoring. Hold beta oswaldo, Entresto, spironolactone until situation clarified. Her HF history is noted - TTE from 03/2021 reviewed. Will monitor. In close communication w/ patient's RN. RACHEL- appears new on admission labs.. Fluids ongoing as above. Recheck BMP in AM. Watch I&Os. Consider urine studies / FENa if situation continues to be unclear. Holding antiHTNs including Entresto as above. Resident Activity Tracking Resident Involvement: Resident Care Provided Care Provided: Adult Hospital Medicine
[2022-02-06] MEDS ORDERED: LACTATED RINGER'S 500 ML IV ONE (23:57)
[2022-02-07] MEDS ORDERED: LACTATED RINGER'S 250 ML IV ONE ×3 (00:15→02:15)
[2022-02-07] MEDS ORDERED: Nursing to Pharmacy Communication SCH ×2 (02:00→02:30)
[2022-02-07 04:27] LABS: Hematocrit (blood only) 27.2 % (37-47); Hemoglobin 9.3 g/dL (12.0-16.0); Mean Corpuscular Hemoglobin 31.8 pg (25-34); Mean Corpuscular Hgb Conc 34.2 g/dL (32-36); Mean Corpuscular Volume 93.2 fL (80-100); Mean Platelet Volume 11.6 fL (7.4-10.4); Platelet Count 120 K/uL (130-400); RDW Coefficient of Variation 16.5 % (11.5-14.5); RDW Standard Deviation 57.1 fL (36.4-46.3); Red Blood Count 2.92 M/uL (4.2-5.4); White Blood Count 10.12 K/uL (4.8-10.8)
[2022-02-07 04:37] LABS: INR 1.2 (0.9-1.1); Partial Thromboplastin Ratio 0.9; Partial Thromboplastin Time 24.5 Seconds (21.0-31.0)
[2022-02-07 04:48] LABS: Albumin Globulin Ratio 1.2 (0.9-2); Albumin Level 2.7 gm/dl (3.4-5.0); BUN Creatinine Ratio 21.9 (10-20); Bilirubin,Total 3.4 mg/dl (0.2-1.0); Calcium 8.2 mg/dl (8.5-10.1); Creatinine Clr Calc Pharmacy 10.9 ml/min; Est GFR (Non-African American) 12.9 ml/min; Globulin 2.3 gm/dl (2.5-4.0); Magnesium 1.4 mg/dl (1.7-2.4); Potassium 4.1 mmol/L (3.5-5.1)
[2022-02-07] MEDS: LEVOTHYROXINE SODIUM 75 MCG TABLET PO SCH (05:15)
[2022-02-07] MEDS ORDERED: CEFEPIME 2,000 MG in SYRINGE 0 ML IV SCH (06:30)
--- NOTE | 2022-02-07 06:43 | XRay Report ---
XR KUB/Abdomen 1 view CLINICAL HISTORY: abdominal distention, post-ercp. COMPARISON STUDY: No previous studies for comparison. TECHNIQUE: 2 supine views of the abdomen FINDINGS: The bowel gas pattern is within normal limits without evidence for dilatation or obstruction. Biliary stent is in place. There is no evidence for organomegaly or gross intra-abdominal mass. No abnormal calcifications are seen along the course of the urinary tracts bilaterally. No acute osseous patholog y. IMPRESSION: 1. No acute intra-abdominal abnormality. 2. Biliary stent is in place. ACT 112: Negative or not required by law. Electronically signed by: Jay Joe M.D. 02/07/2022 6:42 AM
[2022-02-07] MEDS ORDERED: metroNIDAZOLE 500 MG/100 ML BAG IV SCH (06:45)
[2022-02-07] MEDS: PANTOprazole 40 MG TAB PO SCH (08:51)
[2022-02-07] MEDS ORDERED: BISOPROLOL FUMARATE 5 MG TAB PO SCH (09:00)
[2022-02-07] MEDS ORDERED: VALSARTAN/SACUBITRIL 26/24MG TAB PO SCH (09:00)
[2022-02-07] MEDS ORDERED: SPIRONOLACTONE 25 MG TAB PO SCH (09:00)
--- NOTE | 2022-02-07 10:18 | Hospitalist Progress Note ---
Date of Service February 07, 2022 Assessment & Plan (1) Pancreatic cancer: Plan: Kristyn Alfaro is a 86-year-old female with pancreatic cancer presenting for biliary stent placement with Dr. Moulton on 02/06 following with associated weakness and nausea and vomiting. Pancreatic cancer: - Diagnosed in 12/2021. Has seen palliative care recently. Patient is not interested in chemotherapy, but reports she has plans to see radiation oncology. - S/p ERCP with biliary stent placement on 02/[address] Moulton - Overnight with post ERCP abdominal pain, nausea, vomiting; subsequently resolved - Continue Cipro x 3 days per GI note - Continue clear liquid diet; - Will use hydrocodone 1 mg PO Q4h PRN as she reports 2 mg dosage makes her groggy - PT/OT as she is having functional limitations from her symptoms Coronary artery disease: - s/p PCI in 11/2020. - Continue home Plavix and atorvastatin - Holding home regimen of Entresto and beta-oswaldo Paroxysmal atrial fibrillation: - Reports no further episodes since her [place] in 2020. - Hold beta-oswaldo in setting of hypotension - Resume anticoagulation Congestive heart failure: - Per her report, had some level of reduced EF after her [place]. - Last reported echo from 03/2021 with EF 60%. - Cautious IV fluids in the setting of hypotension - Holding home Entresto, diuretic regimen Hypertension: - Holding home antihypertensive medications in the setting of hypotension Severe chronic obstructive pulmonary disease: - No wheezing on exam today. - Continue budesonide-formoterol (or formulary equivalent), and Accolate - Albuterol PRN Hypothyroidism: - TSH was 2.0 in 10/2021. No signs/symptoms of hypo-/hyperthyroidism. - Continue home Synthroid 75 mcg GERD (gastroesophageal reflux disease): - Continue PPI Diet: Continue clear liquid diet given fluctuating abdominal tenderness DVT ppx: Continue home eliquis CODE STATUS: DNR/DNI (2) Coronary artery disease: (3) HTN (hypertension): (4) Hyperlipidemia: (5) Severe chronic obstructive pulmonary disease: (6) Congestive heart failure: Admission and Anticipated Discharge Date Admission Date: February 06, 2022 Supervising Physician Co-Signing Physician Notes Patient seen and examined with PGY-3 Dr. Browning. Agree with history, exam findings, assessment and plan of care as outlined. In brief, Ms. Alfaro is an 86 year old female with recent diagnosis of pancreatic cancer admitted after elective ERCP by Dr. Moulton for stent placement in the CBD. This morning, she feels well. Has some abdominal pain, but no nausea or vomiting. Overnight, noted to have asymptomatic hypotension that improved with IVFs. VS and nursing notes reviewed. Jaundice. Nontoxic appearing. Heart with regular rate and rhythm. No edema. Lungs are clear to auscultation. +BS, abdomen is soft, minimally tender in the epigastric region Labs and imaging reviewed. 1. Pancreatic adenocarcinoma. ERCP with stent placed in CBD on 02/[address] Moulton. Already connected with Palliative Care through [facility]. 2. Abdominal pain with eating. Concern for post-ERCP pancreatitis vs obstruction of the SMA (tumor encircles the SMA). If recurrent pain, consider CTA of the abdomen to further evaluate vascular status. 3. Hypotension. Maybe secondary to post-ERCP pancreatitis. Pain was improved today so lipase not ordered today. 4. RACHEL. New. Likely pre-renal given elevated BUN and limited PO intake over the last few days due to pain. IVFs. 5. Anemia. Monitor for now. Keep hgb > 8.0 Dispo: pending clinical improvement. Subjective Overnight had noted low blood pressure, with abdominal pain and associated nausea. This morning tolerated fluids without complication until later in the day, after lunch had some increase in spasms and feeling of upper abdominal discomfort that subsided after about an hour from when she ate. Had no return of nausea, vomiting, sweats, abdominal pain, changes with bowel or bladder movement. Review of Systems Review of Systems: All systems reviewed & are unremarkable except as noted in Subjective Physical Exam Constitutional: WD/WN, vitals as above Eyes: PERRL, conjunctivae normal, anicteric sclerae Respiratory: normal respiratory effort, lungs clear to auscultation Auscultation: no crackles, no rales, no rhonchi and no wheezes Cardiovascular: Rate/Rhythm: regular rate and regular rhythm Heart Sounds: no gallop, no murmur and no cardiac rub Vessels: normal peripheral pulses; no JVD Extremities: no edema Gastrointestinal (Abdomen): Inspection/Auscultation: normal bowel sounds; abdomen not distended Percussion/Palpation: abdomen soft; abdomen nontender and no guarding Musculoskeletal: no cyanosis or clubbing, extremities motor strength 5/5 Skin: normal turgor and + jaundice Neurologic: PERRL, EOMI, accommodation nl, no face palsy, no dysarthria CN's II-XI intact bilaterally and moves all extremities Psychiatric: Orientation: alert and oriented x 3 Results & Data Results & Data ([facility]) Vital Signs (Past 12 Hours) Vital Signs Temp Pulse Resp BP BP Pulse Ox 02/07/22 07:36 36.9 C 75 18 97/50 L 98 02/07/22 04:09 95/55 L 02/07/22 03:26 36.7 C 72 18 88/42 L 94 02/07/22 01:54 89/46 L 02/07/22 01:25 87/44 L 02/07/22 00:47 89/47 L 02/07/22 00:20 36.4 C L 78 19 92/53 L 92 02/06/22 23:48 36.3 C L 78 12 83/37 L 97 Laboratory Results 02/07/22 02/07/22 02/07/22 Range/Units 03:20 03:20 03:20 WBC (4.8-10.8) K/uL RBC (4.2-5.4) M/uL Hgb (12.0-16.0) g/dL Hct (37-47) % MCV (80-100) fL MCH (25-34) pg MCHC (32-36) g/dL RDW Std Deviation (36.4-46.3) fL RDW Coeff of Maral (11.5-14.5) % Plt Count (130-400) K/uL MPV (7.4-10.4) fL Immature Gran % (Auto) % Neut % (Auto) % Lymph % (Auto) % Mcdowell % (Auto) % Eos % (Auto) % Baso % (Auto) % Neut # (Auto) (1.4-6.5) K/uL Lymph # (Auto) (1.2-3.4) K/uL Mcdowell # (Auto) (0.11-0.59) K/uL Eos # (Auto) (0-0.5) K/uL Baso # (Auto) (0-0.2) K/uL Immature Gran # (Auto) (0.00-0.02) K/uL PT 13.0 H (9.0-12.0) Seconds INR 1.2 H (0.9-1.1) APTT 24.5 (21.0-31.0) Seconds PTT Ratio 0.9 Sodium 135 L (136-145) mmol/L Potassium 4.1 (3.5-5.1) mmol/L Chloride 106 (98-107) mmol/L Carbon Dioxide 15 L (21-32) mmol/L Anion Gap 14 H (3-11) BUN 69 H (6-23) mg/dl Creatinine 3.15 H (0.6-1.2) mg/dl Est Cr Clr Drug Dosing 10.9 ml/min Est GFR ( Amer) 15.0 ml/min Est GFR (Non-Af Amer) 12.9 ml/min BUN/Creatinine Ratio 21.9 H (10-20) Glucose 62 L (70-99(Fasting)) mg/dl Lactate (0.4-2.0) mmol/L Calcium 8.2 L (8.5-10.1) mg/dl Magnesium 1.4 L (1.7-2.4) mg/dl Total Bilirubin 3.4 H (0.2-1.0) mg/dl AST 63 H (13-39) U/L ALT 116 H (7-52) U/L Alkaline Phosphatase 631 H (34-104) U/L Total Protein 5.0 L (6.0-8.3) gm/dl Albumin 2.7 L (3.4-5.0) gm/dl Globulin 2.3 L (2.5-4.0) gm/dl Albumin/Globulin Ratio 1.2 (0.9-2) Procalcitonin 37.30 H (0-0.5) ng/ml 02/07/22 02/06/22 02/06/22 Range/Units 03:20 22:11 22:11 WBC 10.12 4.25 L (4.8-10.8) K/uL RBC 2.92 L 3.14 L (4.2-5.4) M/uL Hgb 9.3 L 10.0 L (12.0-16.0) g/dL Hct 27.2 L 28.9 L (37-47) % MCV 93.2 92.0 (80-100) fL MCH 31.8 31.8 (25-34) pg MCHC 34.2 34.6 (32-36) g/dL RDW Std Deviation 57.1 H 56.5 H (36.4-46.3) fL RDW Coeff of Maral 16.5 H 16.7 H (11.5-14.5) % Plt Count 120 L 154 (130-400) K/uL MPV 11.6 H 11.5 H (7.4-10.4) fL Immature Gran % (Auto) 0.0 % Neut % (Auto) 96.0 % Lymph % (Auto) 3.1 % Mcdowell % (Auto) 0.0 % Eos % (Auto) 0.9 % Baso % (Auto) 0.0 % Neut # (Auto) 4.08 (1.4-6.5) K/uL Lymph # (Auto) 0.13 L (1.2-3.4) K/uL Mcdowell # (Auto) 0.00 L (0.11-0.59) K/uL Eos # (Auto) 0.04 (0-0.5) K/uL Baso # (Auto) 0.00 (0-0.2) K/uL Immature Gran # (Auto) 0.00 (0.00-0.02) K/uL PT (9.0-12.0) Seconds INR (0.9-1.1) APTT (21.0-31.0) Seconds PTT Ratio Sodium (136-145) mmol/L Potassium (3.5-5.1) mmol/L Chloride (98-107) mmol/L Carbon Dioxide (21-32) mmol/L Anion Gap (3-11) BUN (6-23) mg/dl Creatinine (0.6-1.2) mg/dl Est Cr Clr Drug Dosing ml/min Est GFR ( Amer) ml/min Est GFR (Non-Af Amer) ml/min BUN/Creatinine Ratio (10-20) Glucose (70-99(Fasting)) mg/dl Lactate 1.5 (0.4-2.0) mmol/L Calcium (8.5-10.1) mg/dl Magnesium (1.7-2.4) mg/dl Total Bilirubin (0.2-1.0) mg/dl AST (13-39) U/L ALT (7-52) U/L Alkaline Phosphatase (34-104) U/L Total Protein (6.0-8.3) gm/dl Albumin (3.4-5.0) gm/dl Globulin (2.5-4.0) gm/dl Albumin/Globulin Ratio (0.9-2) Procalcitonin (0-0.5) ng/ml 02/06/22 02/06/22 02/06/22 Range/Units 19:14 19:14 19:14 WBC 9.08 (4.8-10.8) K/uL RBC 3.06 L (4.2-5.4) M/uL Hgb 9.5 L (12.0-16.0) g/dL Hct 28.2 L (37-47) % MCV 92.2 (80-100) fL MCH 31.0 (25-34) pg MCHC 33.7 (32-36) g/dL RDW Std Deviation 55.7 H (36.4-46.3) fL RDW Coeff of Maral 16.7 H (11.5-14.5) % Plt Count 175 (130-400) K/uL MPV 11.8 H (7.4-10.4) fL Immature Gran % (Auto) % Neut % (Auto) % Lymph % (Auto) % Mcdowell % (Auto) % Eos % (Auto) % Baso % (Auto) % Neut # (Auto) (1.4-6.5) K/uL Lymph # (Auto) (1.2-3.4) K/uL Mcdowell # (Auto) (0.11-0.59) K/uL Eos # (Auto) (0-0.5) K/uL Baso # (Auto) (0-0.2) K/uL Immature Gran # (Auto) (0.00-0.02) K/uL PT 11.9 (9.0-12.0) Seconds INR 1.1 (0.9-1.1) APTT 24.4 (21.0-31.0) Seconds PTT Ratio 0.9 Sodium 134 L (136-145) mmol/L Potassium 4.0 (3.5-5.1) mmol/L Chloride 106 (98-107) mmol/L Carbon Dioxide 16 L (21-32) mmol/L Anion Gap 12 H (3-11) BUN 71 H (6-23) mg/dl Creatinine 2.92 H (0.6-1.2) mg/dl Est Cr Clr Drug Dosing 11.7 ml/min Est GFR ( Amer) 16.4 ml/min Est GFR (Non-Af Amer) 14.2 ml/min BUN/Creatinine Ratio 24.3 H (10-20) Glucose 83 (70-99(Fasting)) mg/dl Lactate (0.4-2.0) mmol/L Calcium 8.5 (8.5-10.1) mg/dl Magnesium (1.7-2.4) mg/dl Total Bilirubin 3.6 H (0.2-1.0) mg/dl AST 83 H (13-39) U/L ALT 142 H (7-52) U/L Alkaline Phosphatase 752 H (34-104) U/L Total Protein 5.6 L (6.0-8.3) gm/dl Albumin 3.0 L (3.4-5.0) gm/dl Globulin 2.6 (2.5-4.0) gm/dl Albumin/Globulin Ratio 1.2 (0.9-2) Procalcitonin (0-0.5) ng/ml Medications Administered Current Inpatient Medications Acetaminophen (Acetaminophen 500 Mg Tab) 500 mg PO Q4H PRN PRN Reason: Mild/moderate pain Stop: 03/08/22 15:33 Last Admin: 02/06/22 21:55 Dose: 500 mg Documented by: Albuterol (Albuterol Hfa 8 Gm Inhaler) 2 puffs INH Q4R PRN PRN Reason: shortness of breath or wheezing Stop: 03/08/22 15:32 Ciprofloxacin (Ciprofloxacin 500 Mg Tab) 500 mg PO Q18H CONSUELO; Protocol Stop: 02/16/22 20:59 Last Admin: 02/06/22 21:56 Dose: 500 mg Documented by: Fluticasone/Vilanterol (Fluticasone/Vilanterol 100/25mcg 14 Puffs/Inhaler) 1 puffs INH HS CONSUELO; Protocol Stop: 03/08/22 20:59 Last Admin: 02/06/22 22:55 Dose: 1 puffs Documented by: Hydromorphone HCl (Hydromorphone Hcl 2 Mg Tab) 1 mg PO Q4H PRN PRN Reason: Severe Pain Stop: 02/20/22 15:33 Lactated Ringer's (Lr) 1,000 mls @ 80 mls/hr IV .[id number] [facility] Stop: 03/09/22 11:14 Last Admin: 02/07/22 11:55 Dose: 80 mls/hr Documented by: Levothyroxine Sodium (Levothyroxine Sodium 75 Mcg Tablet) 75 mcg PO DAILYBB [facility] Stop: 03/09/22 06:29 Last Admin: 02/07/22 05:15 Dose: 75 mcg Documented by: Miscellaneous (Zafirlukast: Order Awaiting Action) 1 ea N/A QS [facility] Stop: 03/09/22 15:59 Ondansetron HCl (Ondansetron Inj 2 Mg/Ml 2 Ml Vial) 4 mg IV Q4H PRN PRN Reason: Nausea Stop: 03/08/22 15:33 Pantoprazole Sodium (Pantoprazole 40 Mg Tab) 40 mg PO QAM [facility] Stop: 03/09/22 08:59 Last Admin: 02/07/22 08:51 Dose: 40 mg Documented by: Resident Activity Tracking Resident Involvement: Resident Care Provided Care Provided: Adult Hospital Medicine
[2022-02-07] MEDS: LACTATED RINGER'S 1,000 ML IV SCH ×2 (11:55→22:25)
[2022-02-07] MEDS: CIPROFLOXACIN 500 MG TAB PO SCH (17:02)
[2022-02-07] MEDS: FLUTICASONE/VILANTEROL 100/25MCG 14 PUFFS/INHALER INH SCH (21:04)
[2022-02-07] MEDS: ZAFIRLUKAST 20 MG PO SCH (21:04)
[2022-02-07] MEDS: ATORVASTATIN 20 MG TAB PO SCH (21:04)
[2022-02-07] MEDS: APIXABAN 2.5 MG TAB PO SCH (21:04)
[2022-02-07] MEDS: ACETAMINOPHEN 500 MG TAB PO PRN (22:31)
[2022-02-08] MEDS: LEVOTHYROXINE SODIUM 75 MCG TABLET PO SCH (05:21)
[2022-02-08] MEDS: LACTATED RINGER'S 1,000 ML IV SCH ×3 (06:15→21:25)
[2022-02-08 07:31] LABS: Basophils # (auto) 0.01 K/uL (0-0.2); Basophils % (auto) 0.1 %; Eosinophils # (auto) 0.12 K/uL (0-0.5); Eosinophils % (auto) 0.7 %; Hemoglobin 8.8 g/dL (12.0-16.0); Immature Granulocytes # (auto) 0.12 K/uL (0.00-0.02); Immature Granulocytes % (auto) 0.7 %; Lymphocytes % (auto) 2.8 %; Mean Corpuscular Hemoglobin 30.8 pg (25-34); Mean Corpuscular Hgb Conc 33.8 g/dL (32-36); Mean Corpuscular Volume 90.9 fL (80-100); Mean Platelet Volume 12.3 fL (7.4-10.4); Monocytes # (auto) 1.27 K/uL (0.11-0.59); Neutrophils # (auto) 16.08 K/uL (1.4-6.5); Neutrophils % (auto) 88.7 %; Platelet Count 133 K/uL (130-400); RDW Coefficient of Variation 16.6 % (11.5-14.5); RDW Standard Deviation 55.1 fL (36.4-46.3); Red Blood Count 2.86 M/uL (4.2-5.4)
[2022-02-08 08:02] LABS: Albumin Level 2.4 gm/dl (3.4-5.0); BUN Creatinine Ratio 22.5 (10-20); Bilirubin,Total 2.1 mg/dl (0.2-1.0); Calcium 7.7 mg/dl (8.5-10.1); Creatinine Clr Calc Pharmacy 10.1 ml/min; Est GFR (African American) 13.7 ml/min; Est GFR (Non-African American) 11.9 ml/min; Globulin 2.3 gm/dl (2.5-4.0); Magnesium 1.4 mg/dl (1.7-2.4); Phosphorus 3.5 mg/dl (2.5-4.9); Potassium 4.1 mmol/L (3.5-5.1); Total Protein 4.7 gm/dl (6.0-8.3)
[2022-02-08] MEDS: CIPROFLOXACIN 500 MG TAB PO SCH (08:58)
[2022-02-08] MEDS: PANTOprazole 40 MG TAB PO SCH (08:58)
[2022-02-08] MEDS: APIXABAN 2.5 MG TAB PO SCH ×2 (08:58→22:23)
[2022-02-08] MEDS: CLOPIDOGREL BISULFATE 75 MG TAB PO SCH (08:59)
[2022-02-08] MEDS: ZAFIRLUKAST 20 MG PO SCH ×2 (08:59→21:21)
[2022-02-08] MEDS ORDERED: levoFLOXacin/D5W 750 MG/150 ML BAG IV ONE (10:41)
--- NOTE | 2022-02-08 11:01 | Hospitalist Progress Note ---
Date of Service February 08, 2022 Assessment & Plan (1) Pancreatic cancer: Plan: Kristyn Alfaro is a 86-year-old female with pancreatic cancer presenting for biliary stent placement with Dr. Moulton on 02/06 following with associated weakness and nausea and vomiting. Abdominal pain: - uncertain etiology but given pancreas cancer and recent ERCP - Fluctuating abdominal pain overnight not related to food consumption - Lipase 976, Pro-Chacho 47, WBC 18 on a.m. labs - CT Abd/Pelvis with IV contrast in December demonstrating pancreatic mass with - US mesenteric demonstrating patent SMA, with pneumobilia - expanded abx coverage to Levaquin/Flagyl given worsening - CT abdomen pending Paroxysmal atrial fibrillation: - RVR on 02/08 with rates into the 160s, in the setting of hypotension - converted back to sinus rhythm after dose of 0.125mg Digoxin and 150mg IV bolus of amiodarone - restart home bisoprolol dosing - continue Eliquis Pancreatic cancer: - Diagnosed in 12/2021. Has seen palliative care recently. Patient is not interested in chemotherapy, but reports she has plans to see radiation oncology. - PET Scan from 02/04 demonstrating partial gastric outlet obstruction due to pancreatic mass as well as concerning findings in late hilar region consistent with potential metastatic disease - S/p ERCP with biliary stent placement on 02/[address] Moulton - Overnight with post ERCP abdominal pain, nausea, vomiting; subsequently resolved - Continue clear liquid diet, per GI can increase to fulls if CT returns normal - Will use hydrocodone 1 mg PO Q4h PRN as she reports 2 mg dosage makes her groggy Coronary artery disease: - s/p PCI in 11/2020. - Continue home Plavix and atorvastatin - Holding home regimen of Entresto Congestive heart failure: - Per her report, had some level of reduced EF after her [place]. - Last reported echo from 03/2021 with EF 60%. - Cautious IV fluids in the setting of hypotension - Holding home Entresto, diuretic regimen Hypertension: - Holding home antihypertensive medications in the setting of hypotension Severe chronic obstructive pulmonary disease: - No wheezing on exam today. - Continue budesonide-formoterol (or formulary equivalent), and Accolate - Albuterol PRN Hypothyroidism: - TSH was 2.0 in 10/2021. No signs/symptoms of hypo-/hyperthyroidism. - Continue home Synthroid 75 mcg GERD (gastroesophageal reflux disease): - Continue PPI Diet: Continue clear liquid diet given fluctuating abdominal tenderness DVT ppx: Continue home eliquis CODE STATUS: DNR/DNI (2) Abdominal pain: (3) Coronary artery disease: (4) HTN (hypertension): (5) Hyperlipidemia: (6) Severe chronic obstructive pulmonary disease: (7) Congestive heart failure: Admission and Anticipated Discharge Date Admission Date: February 08, 2022 Supervising Physician Co-Signing Physician Notes Patient seen and examined with PGY-3 Dr. Browning. Agree with history, exam findings, assessment and plan of care as outlined. In brief, Ms. Alfaro is an 86 year old female with recent diagnosis of pancreatic cancer admitted after elective ERCP by Dr. Moulton for stent placement in the CBD. This morning, continues to have intermittent upper abdominal pain. Does have abdominal bloating, but reports that has been present for a long time now. Does not feel it is worse today compared to yesterday. Does have pain with eating (doing clears right now)more pain with cold liquids than warm liquids. No change in stools. No nausea. This afternoon, went into afib with RVR with hypotension. She did not have chest pain, palpitations, dyspnea, dizziness. VS and nursing notes reviewed. Jaundice. Nontoxic appearing. Heart with regular rate and rhythm. No edema. Lungs are clear to auscultation. +BS, abdomen is slightly distended, but soft. Nontender in the epigastric area. Labs and imaging reviewed. 1. Pancreatic adenocarcinoma and obstructive jaundice. ERCP with stent placed in CBD on 02/[address] Moulton. [facility] showed metastatic disease to the lungs. Prior CT Abdomen and Pelvis showed mesenteric adenopathy. Already connected with Palliative Care through [facility]. 2. Abdominal pain with eating. Concern for post-ERCP pancreatitis vs obstruction of the SMA (tumor encircles the SMA) vs perforation with new leukocytosis and rising procalcitonin. US abdomen with stenosis of the SMA but no focal occlusion. Lipase ~1000. Pending CT Abd/Pelvis (prior CT showed evidence of gastric outlet obstruction) to evaluate for possible perf or other complications of ERCP. 3. Afib with RVR. With hypotension. Given amiodarone bolus with minimal improvement in rate, followed by digoxin (renally dosed) with conversion to sinus rhythm. Continue engine monitor. Optimize electrolytes. 4. Elevated procalcitonin. With new leukocytosis, concerning for infectious source; however, may be elevated with concomitant pancreatitis and pancreatic cancer. Switched antibiotics from ciprofloxacin to levofloxacin and metronidazole to cover for intra-abdominal infections. 5. RACHEL. New. Minimal improvement with IVFs. Checking urine lytes, urinalysissuspect this may be intra-renal. Nephrology consult. 6. Anemia. Monitor for now. Keep hgb > 8.0 Dispo: pending clinical improvement. Review of Systems Review of Systems: All systems reviewed & are unremarkable except as noted in Subjective Physical Exam Constitutional: WD/WN, vitals as above Eyes: PERRL, conjunctivae normal, anicteric sclerae Respiratory: normal respiratory effort, lungs clear to auscultation Auscultation: no crackles, no rales, no rhonchi and no wheezes Cardiovascular: Rate/Rhythm: regular rate and regular rhythm Heart Sounds: no gallop, no murmur and no cardiac rub Vessels: normal peripheral pulses; no JVD Extremities: no edema Gastrointestinal (Abdomen): Inspection/Auscultation: + abdomen distended and normal bowel sounds; no abdominal wall ecchymosis Percussion/Palpation: + abdomen tender, abdomen soft and normal to percussion; no guarding and no fluid wave Skin: normal turgor and + jaundice Neurologic: PERRL, EOMI, accommodation nl, no face palsy, no dysarthria CN's II-XI intact bilaterally and moves all extremities Psychiatric: Orientation: alert and oriented x 3 Results & Data Results & Data ([facility]) Vital Signs (Past 12 Hours) Vital Signs Temp Pulse Pulse Resp BP BP Pulse Ox 02/08/22 10:46 36.5 C 74 19 104/64 97 02/08/22 07:29 36.4 C L 76 17 97/42 L 96 02/08/22 03:26 36.5 C 76 16 108/43 L 97 02/08/22 00:00 76 Resident Activity Tracking Resident Involvement: Resident Care Provided Care Provided: Adult Hospital Medicine
[2022-02-08] MEDS: metroNIDAZOLE 500 MG/100 ML BAG IV SCH ×2 (11:56→20:23)
--- NOTE | 2022-02-08 12:05 | Ultrasound Report ---
US duplex mesenteric CLINICAL HISTORY: Increasing abdominal pain . History of pancreatic cancer. TECHNIQUE: Grayscale, color and spectral waveform Doppler examination of the abdomen was performed. Comparison: None available at the time of this dictation. FINDINGS: The imaged portion of the aorta is normal in course and caliber with no aneurysmal dilatation. The celiac axis is patent with velocity measuring 142 cm/s. The SMA is patent with velocity of the proximal SMA measuring 282 cm/s, mid SMA measuring 194 cm/s an d distal SMA measuring 54 cm/s. The findings are characteristic of stenosis of the proximal to mid SM A. The CRISTOFER cannot be visualized. The hepatic and splenic arteries appear patent. There is evidence for mild pneumobilia with biliary stent in place. 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 ACT 112: Negative or not required by law. Electronically signed by: Jay Joe M.D. 02/08/2022 12:03 PM
[2022-02-08] MEDS ORDERED: AMIODARONE / D5W 150 MG/100 ML BAG IV STA (13:17)
[2022-02-08] MEDS ORDERED: 0.2 MICRON FILTER SET 1 EA IV ONE (13:17)
[2022-02-08 13:29] LABS: Hematocrit (blood only) 29.7 % (37-47)
[2022-02-08 13:47] LABS: BUN Creatinine Ratio 22.6 (10-20); Calcium 7.9 mg/dl (8.5-10.1); Creatinine Clr Calc Pharmacy 10.6 ml/min; Est GFR (African American) 14.5 ml/min; Est GFR (Non-African American) 12.5 ml/min; Potassium 3.9 mmol/L (3.5-5.1)
[2022-02-08] MEDS ORDERED: DIGOXIN 125 MCG in SYRINGE 9.5 ML IV STA (14:01)
[2022-02-08] MEDS: MAGNESIUM SULFATE / D5W 1 GM/100 ML BAG IV SCH ×4 (14:20→20:22)
--- NOTE | 2022-02-08 16:29 | Gastroenterology Progress Note ---
Date of Service February 08, 2022 Assessment & Plan Admission and Anticipated Discharge Date Admission Date: February 08, 2022 Subjective Pt with continued abdominal pain, nausea post ERCP. Pt reports "slightly different pain than before the procedure," continued nausea and reflux. Her PO intake has been poor VS sig for tachy, BP with systolic 60-100, no fever. On exam, she appears comfortable and is pleasant. Abd shows epigastric distention and tenderness Labs show WBC 18 today; ARF with creat 3's, prev WNL; procal 46; LFT's improving; Lipase 976 Uls shows no clot around the pancreas A/P Panc CA with biliary obstruction, ? gastric outlet obstruction S/p ERCP with biliary decompression Now with non toxic clinical appearance but persistent discomfort, leukocytosis, intermittent hypotension, ARF - Agree with empiric abx coverage. Will request CT to look for evidence of ERCP complication. - Pain may be from underlying panc ca, GOO. Has seen palliative care as outpt, will d/w Dr. Muolton in am - ARF secondary to dehydration/ cardiorenal? Would consider renal consult, will d/w hospitalist Results & Data ([facility]) Vital Signs (Past 12 Hours) Vital Signs Temp Pulse Pulse Resp BP BP Pulse Ox 02/08/22 15:31 36.5 C 68 19 93/55 L 97 02/08/22 14:48 115 H 91/55 L 02/08/22 14:45 123 H 02/08/22 14:39 123 H 80/59 L 02/08/22 13:55 129 H 76/42 L 02/08/22 13:53 132 H 62/37 L 02/08/22 13:20 149 H 97/59 L 02/08/22 13:18 155 H 74/45 L 02/08/22 10:46 36.5 C 74 19 104/64 97 02/08/22 09:14 84 02/08/22 07:29 36.4 C L 76 17 97/42 L 96
--- NOTE | 2022-02-08 18:54 | CT Scan Report ---
CT abd pelvis wo con CLINICAL HISTORY: abdominal pain/distension . Pancreatic head mass COMPARISON STUDY: 01/02/2022 CT DOSE: 352.26 mGy.cm TECHNIQUE: Standard CT of the Abdomen and Pelvis was performed without IV contrast. The patient did not receive oral contrast. A dose lowering technique was utilized adhering to the principles of IMELDA [place]. FINDINGS: Lung base: There are small bilateral pleural effusions with mild bibasilar atelectasis. Abdominal cavity: There is interval increase in abdominal ascites with fluid surrounding the liver an d spleen. Liver: The liver is homogeneous in attenuation on these limited noncontrast images..There is extensiv e pneumobilia present related to interval biliary stent being placed. Spleen: The spleen is homogeneous in attenuation on these limited noncontrast images. Pancreas: There is evidence for interval increase in size of pancreatic head/neck mass now measuring approximately 6.1 x 5.9 cm. Biliary stent is seen extending through the mass. Vascular structures pre viously identified cannot be visualized due to lack of intravenous contrast. Vascular ultrasound demo nstrated high-grade stenosis of the proximal to mid SMA. Gall Bladder: There is syrinx depicted is excretion of contrast within the gallbladder. Adrenal glands: The adrenal glands are normal in size and attenuation on these limited noncontrast im ages. Kidneys: The kidneys are homogeneous in attenuation on these limited noncontrast images. There is no evidence for gross renal mass, calculus or hydronephrosis bilaterally. Bowel: There is a small to moderate size hiatal hernia. The small bowel loops are fluid-filled withou t evidence for dilatation or obstruction. Findings are suspicious for ileus versus gastroenteritis. T here is no evidence for mass lesion. There is sigmoid diverticulosis without evidence for diverticuli tis. There are no inflammatory changes present. There is no evidence for free air. Bladder: The pelvic structures are obscured by bilateral hip replacements. : The pelvic structures are obscured by bilateral hip replacements. Vasculature: There is no evidence for focal aneurysmal dilatation of the abdominal aorta. Atheroscler otic calcification is present. Osseous structures: There is no acute osseous pathology. IMPRESSION: 1. Increasing size of pancreatic head/neck mass . The study is limited by lack of IV contrast. 2. Biliary stent in place with pneumobilia present. 3. Previously identified vascular compromise cannot be evaluated by lack of intravenous contrast. 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 4. Mild abdominal ascites. 5. Fluid-filled loops of small bowel most characteristic of an ileus versus gastroenteritis. 6. Small bilateral pleural effusions and minimal bibasilar atelectasis. 7. Additional nonacute findings are delineated above. ACT 112: Negative or not required by law. Electronically signed by: Jay Joe M.D. 02/08/2022 6:52 PM
[2022-02-08] MEDS: ATORVASTATIN 20 MG TAB PO SCH (21:20)
[2022-02-08] MEDS: FLUTICASONE/VILANTEROL 100/25MCG 14 PUFFS/INHALER INH SCH (21:22)
[2022-02-08 23:44] LABS: Bacteria Urine Automated 2+ (Negative); Epithelial Cell Urine Auto >30 /lpf (0-5); WBC Urine Automated >30 /hpf (0-5)
[2022-02-08 23:53] LABS: Creatinine Urine Random 94.3 mg/dl; Urine Potassium 20.5 mmol/L
[2022-02-09 00:04] LABS: RBC Urine Automated 0-4 /hpf (0-4)
[2022-02-09] MEDS ORDERED: HYDROmorphone INJ 0.5 MG/0.5 ML SYR IV STA ×2 (01:18→16:22)
[2022-02-09] MEDS ORDERED: FAMOTIDINE 20 MG in SYRINGE 3 ML IV STA (01:28)
[2022-02-09 01:33] LABS: Basophils # (auto) 0.01 K/uL (0-0.2); Basophils % (auto) 0.1 %; Eosinophils # (auto) 0.07 K/uL (0-0.5); Eosinophils % (auto) 0.4 %; Hemoglobin 10.8 g/dL (12.0-16.0); Immature Granulocytes # (auto) 0.07 K/uL (0.00-0.02); Immature Granulocytes % (auto) 0.4 %; Lymphocytes % (auto) 2.3 %; Mean Corpuscular Hemoglobin 31.8 pg (25-34); Mean Corpuscular Volume 91.2 fL (80-100); Mean Platelet Volume 12.5 fL (7.4-10.4); Monocytes % (auto) 4.5 %; Neutrophils # (auto) 16.36 K/uL (1.4-6.5); Neutrophils % (auto) 92.3 %; Platelet Count 139 K/uL (130-400); RDW Coefficient of Variation 16.7 % (11.5-14.5); RDW Standard Deviation 55.3 fL (36.4-46.3); White Blood Count 17.71 K/uL (4.8-10.8)
[2022-02-09 01:35] LABS: Mean Corpuscular Hgb Conc 34.8 g/dL (32-36)
[2022-02-09] MEDS: SUCRALFATE 1 GM/10 ML UDC PO SCH ×6 (01:47→20:19)
[2022-02-09] MEDS: metroNIDAZOLE 500 MG/100 ML BAG IV SCH ×3 (01:48→17:37)
[2022-02-09 01:54] LABS: Albumin Level 2.6 gm/dl (3.4-5.0); BUN Creatinine Ratio 23.3 (10-20); Bilirubin,Total 1.9 mg/dl (0.2-1.0); Creatinine Clr Calc Pharmacy 11.4 ml/min; Est GFR (African American) 15.8 ml/min; Est GFR (Non-African American) 13.6 ml/min; Globulin 2.6 gm/dl (2.5-4.0); Potassium 4.2 mmol/L (3.5-5.1); Total Protein 5.2 gm/dl (6.0-8.3)
--- NOTE | 2022-02-09 04:43 | Communication Note ---
Date of Service: February 09, 2022 Night resident note I was called to patient's room around 01:00 after RN notified me patient had developed 10/10 pain which was far worse than earlier in the day. Upon my exam, patient was acutely distressed, abdomen was tense, distended, and severely tender, with guarding and rebound even with light palpation of the RUQ and epigastrium. BP was a bit low, relatively unchanged from recent values. VS were otherwise stable. I made patient NPO and ordered a CBC, CMP, PT/INR, and lactate, while my attending ordered pain control. Labs were most notable for a slight improvement in patient's leukocytosis, anemia, and elevated creatinine. After a risk/benefit discussion with my attending about IV contrast and patient's RACHEL/ARF, we decided to order a stat CT abdomen/pelvis with IV contrast. I discussed with the agricultural engineering technicians, who attempted to contact the the on-call radiologist but was unable to do so after an hour. At that time, patient's symptoms had very slightly improved, though her epigastrium was still severely tender. Around 03:30, the agricultural engineering technicians notified me she hadn't heard back from the provider. Upon reexamination, patient's symptoms had continued to gradually improve, though her abdominal tenderness was still severe. After discussing again with my attending, we agreed that patient appeared stable enough to make it through until morning, when the team would be receiving nephrology's input. I did not hear back for the rest of the morning about any change in signs or symptoms. Fer Good PGY2 Resident Activity Tracking Resident Involvement: Resident Care Provided and Communication Instructor Coverage Note Care Provided: Adult Hospital Medicine
[2022-02-09] MEDS: LEVOTHYROXINE SODIUM 75 MCG TABLET PO SCH (05:34)
--- NOTE | 2022-02-09 07:08 | Hospitalist Progress Note ---
Date of Service February 09, 2022 Assessment & Plan (1) Pancreatic cancer: Plan: Kristyn Alfaro is a 86-year-old female with pancreatic cancer presenting for biliary stent placement with Dr. Moulton on 02/06 following with associated weakness and nausea and vomiting. Abdominal pain and distention - - likely multifactorial: dysmotility - possibly ileus +/- gastroparesis; cancer- related pain playing a role, as is dyspepsia. Cannot definitely r/o post-ERCP pancreatitis, SMA compression - Work-up as follows: - On 02/07: Lipase 976, Pro-Chacho 47, WBC 18 - CT-A/P 02/09: Increase in size of pancreatic mass, biliary stent visualized with pneumobilia, fluid-filled loops of bowel c/w ileus vs. gastroenteritis. - US mesenteric demonstrating patent SMA, with pneumobilia - Continue empiric Cefepime/Flagyl for now - GI following -- appreciate insight, recommendations. - Trial PPIs: Protonix, Pepcid, Maalox - If sudden worsening of pain - opt to check Doppler of SMA over CTA if feasible. - Tylenol > Dilaudid - NPO until clarified and given suspicion for ileus RACHEL - without h/o CKD or renal failure - Presented 02/06 with Cr 2.92 with subsequent peak to 3.38 on 02/08 --> now downtrending (3.01 on 02/09) - FENa < 1% -- in setting of recent n/v/anorexia GUNNER'S MATE M, likely prerenal and ATN- component. Also possible superimposed with insult from ARB? Lower suspicion for post-renal - CT-A/P (02/08): Limited study given non-contrast, but no e/o gross renal mass/calcs/hydro - I&Os reflect small output since arrival and +9L IVF; hold on further fluids for now - Nephrology previously consulted - appreciate insight, recommendations, monitoring - Avoid nephrotoxic medications Paroxysmal atrial fibrillation - - RVR on 02/08 with rates into the 160s, in the setting of hypotension - converted back to sinus rhythm after dose of 0.125mg Digoxin and 150mg IV bolus of amiodarone - restart home bisoprolol dosing - continue Eliquis Pancreatic cancer: - Diagnosed in 12/2021. Has seen palliative care recently. Patient is not interested in chemotherapy, but reports she has plans to see radiation oncology. - PET Scan from 02/04 demonstrating partial gastric outlet obstruction due to pancreatic mass as well as concerning findings in late hilar region consistent with potential metastatic disease - S/p ERCP with biliary stent placement on 02/[address] Moulton - Consult radiation oncology while here. - Resume when appropriate: hydrocodone 1 mg PO Q4h PRN (2 mg makes her groggy) Coronary artery disease: - s/p PCI in 11/2020. - Continue home Plavix and atorvastatin - Holding home regimen of Entresto Congestive heart failure: - Per her report, had some level of reduced EF after her PR. - Last reported echo from 03/2021 with EF 60%. - Cautious IV fluids in the setting of hypotension - Holding home Entresto, diuretic regimen Hypertension: - Holding home antihypertensive medications in the setting of hypotension Severe chronic obstructive pulmonary disease: - No wheezing on exam today. - Continue budesonide-formoterol (or formulary equivalent), and Accolate - Albuterol PRN Hypothyroidism: - TSH was 2.0 in 10/2021. No signs/symptoms of hypo-/hyperthyroidism. - Continue home Synthroid 75 mcg GERD (gastroesophageal reflux disease): - Continue PPI Dispo: MS/T Diet: Continue clear liquid diet given fluctuating abdominal tenderness DVT ppx: Continue home eliquis CODE STATUS: DNR/DNI (2) Abdominal pain: (3) Coronary artery disease: (4) HTN (hypertension): (5) Hyperlipidemia: (6) Severe chronic obstructive pulmonary disease: (7) Congestive heart failure: Admission and Anticipated Discharge Date Admission Date: February 08, 2022 Supervising Physician Co-Signing Physician Notes Resident Physician Supervision Note: I interviewed and examined the patient. Discussed with Dr. Wong and agree with findings and plan as documented in the note. Any exceptions or clarifications are listed here: None Patient with confirmed pancreatic cancer by biopsy presented with concern for obstructive members pancreatitis placed a bare-metal biliary stent into the sphincterotomy. Post procedure patient has persistent significant pain. The pain is difficult to ascertain whether it is from some biliary spasm from her stent whether some gastritis was from pancreatitis with is from the obstruction of her mass with her is from ileus. Subsequently her current biggest issue is pain control. Patient did have an outpatient visit with palliative care and I did speak personally to the palliative care physician today. Patient will have parenteral Dilaudid attempt to control her pain if this is unsuccessful may consider to pursue PLUG PASTER. Patient is being evaluated by radiation oncology and will have likely initiation of radiation therapy for palliation and pain control. Patient's family is at the bedside and updated. Physical exam shows her to have hypoactive abdomen with tympany and distention consistent with ileus. Documented By: Alex Magana MD Subjective Significant abdominal pain overnight. See overnight team note. Remained in NSR - no further bouts of AFib. This AM, reports feeling "mostly better" overall. Pain now feels back to baseline. Describes the pain last night as "crampy" -- most prominent in epigastrium and bilateral ribs. Wonders if it's GERD. Does endorse more burping this morning, no nausea. Feeling thirsty. No CP/palpitations/SOB. We had an extensive talk this morning about goals of care. She recounted her last year of medical issues to me, including the unfortunate diagnosis of pancreatic cancer and of her partner. She tells me she is not afraid to , and would prefer to stick away from interventional procedures and chemotherapy. However, she is amenable to radiation therapy and would like to optimize pain control. She wishes to go to a short-term rehab / SNF following discharge if possible. Feels PT is helping and is benefiting her personal goals. Review of Systems Review of Systems: as per HPI Physical Exam Physical Exam: General: 86-year old female who is alert, oriented, and appears in no acute distress. HEENT: NCAT. - Eyes - Sclera are white, anicteric, and without injection. - Mouth - MMM - Neck - supple, no appreciable JVD Cardiac: Normal rate and regular rhythm; S1 and S2 present with no murmurs, rubs, or gallops. Pulmonary: Good respiratory effort with symmetric expansion of the chest. No use of accessory muscles. Lungs were clear to auscultation bilaterally with no crackles or wheezes. Abdominal: Normoactive bowel sounds. Abdomen is distended and mildly firm to the touch; no rebound/guarding. +epigastric discomfort TTP. +tymphanic Extremities: Upper and lower extremities are warm and well perfused. Psych: Well-developed, well-nourished, appropriately dressed for occasion. Behavior is cooperative and appropriate. Affect is WNL. Insight is appropriate. Results & Data Results & Data ([facility]) Vital Signs (Past 12 Hours) Vital Signs Temp Pulse Pulse Resp BP BP Pulse Ox 02/09/22 04:03 36.6 C 78 16 104/57 L 98 02/09/22 00:00 76 02/08/22 23:27 36.6 C 80 18 102/60 97 02/08/22 19:07 36.6 C 71 18 101/55 L 95 Resident Activity Tracking Resident Involvement: Resident Care Provided Care Provided: Adult Hospital Medicine
[2022-02-09] MEDS ORDERED: PANTOprazole 40 MG in SYRINGE 0 ML IV ONE (08:50)
[2022-02-09] MEDS ORDERED: FAMOTIDINE 20 MG in SYRINGE 3 ML IV ONE (08:50)
[2022-02-09] MEDS ORDERED: PANTOprazole 40 MG TAB PO SCH (09:00)
[2022-02-09] MEDS: CLOPIDOGREL BISULFATE 75 MG TAB PO SCH (09:19)
[2022-02-09] MEDS: APIXABAN 2.5 MG TAB PO SCH ×2 (09:19→20:14)
[2022-02-09] MEDS: ZAFIRLUKAST 20 MG PO SCH ×2 (09:19→20:46)
[2022-02-09] MEDS: BISOPROLOL FUMARATE 5 MG TAB PO SCH (09:19)
--- NOTE | 2022-02-09 09:52 | Gastroenterology Progress Note ---
Date of Service February 09, 2022 Assessment & Plan Admission and Anticipated Discharge Date Admission Date: February 08, 2022 Subjective Pt with episode of abdominal pain, received dilaudid last night. Tachy and hypotensive yest, received dig. No new complaints. PE: Appears comfortable, pleasant Abd: tender in epigastrium Labs: Bili improving, now 1.9 AP improving WBC 17 Creat 3 A/P: Abdominal pain - Likely pancreatic cancer; may have gastroparesis related to malignancy as well. She dislikes taking narcotics. WIll begin low dose of Marinol, and, if Marinol tolerated, consider Reglan at low dose. Consider palliative medicine to consider celiac block. Leukocytosis, procalcitonin incr - Would ask primary srevice to consider feliciano- culture. Pt has hives with PCN in the 1940s, will change abx coverage to c efepime + flagyl and follow. Renal failure - Cardio renal? Hopefully will improve as BP and tachy improved. Nephro consult pending. Results & Data ([facility]) Vital Signs (Past 12 Hours) Vital Signs Temp Pulse Pulse Resp BP BP Pulse Ox 02/09/22 08:00 69 02/09/22 07:25 36.7 C 73 19 91/54 L 97 02/09/22 04:03 36.6 C 78 16 104/57 L 98 02/09/22 00:00 76 02/08/22 23:27 36.6 C 80 18 102/60 97
[2022-02-09] MEDS ORDERED: CEFEPIME 1,000 MG in SYRINGE 0 ML IV ONE (10:45)
[2022-02-09] MEDS ORDERED: HYDROmorphone HCL 2 MG TAB PO PRN ×2 (12:40→13:12)
[2022-02-09] MEDS ORDERED: HYDROmorphone INJ 0.5 MG/0.5 ML SYR IV PRN ×2 (13:06→15:34)
--- NOTE | 2022-02-09 14:09 | XRay Report ---
KUB HISTORY: Acute generalized abdominal pain bowel distention, post-ERCP; worsening ileus? COMPARISON: CT abdomen and pelvis 02/08/2022 FINDINGS: Cardiomegaly with a loop recorder device. No pneumatosis or pneumoperitoneum identified. A common bile duct stent is noted with pneumobilia. Gas-filled loops of large and small bowel are noted with nonobstructive bowel gas pattern. No urolith identified. Bilateral hip total joint arthroplasti es. Degenerative changes of the lumbar spine. IMPRESSION: 1. Nonobstructive bowel gas pattern. No pneumatosis or pneumoperitoneum. 2. Common bile duct stent in unchanged positioning. ACT 112: Negative or not required by law. The above report was generated using voice recognition software. It may contain grammatical, syntax o r spelling errors. Electronically signed by: Robby Gray M.D. 02/09/2022 2:06 PM
--- NOTE | 2022-02-09 14:15 | Nephrology Consultation ---
Date of Consultation February 09, 2022 Assessment & Plan (1) Acute renal failure: stage 3 nonoliguric RACHEL in patient with rapidly advancing pancreatic cancer and active ileus/ high grade SMA stenosis. >her admission creatinine 02/06 was 2.9; her peak creatinine was 02/08 at 3.4; her creatinine today is 3. Few OP data are available to establish a baseline; however on 01/26 as OP her creatinine was 1.2. And on December 26 and January 09 of this year, creatinine was 0.9 at [facility]. >was already w/ advancing though early renal failure earlier this month >now with severe RACHEL in setting of acceptable for now chemistries and no obvious vol OL; also hx of renal ischemia presumably w/ A fib and RVR as well as lower BP ongoing overnight >> ischemic ATN most likely >daily BMP >>pls get UACM >no IV contrast pls or nsaids; cont to hold entresto >reasonable to continue LR at 50-80 mL hourly -no fluid limit or specific w/u for hyponatremia while on liquid diet >did not discuss dialysis with her though we may have to discuss at some point; very poor candidate and not at all clear to me this would be offered -grim prognosis and ongoing discussions of hospice are appropriate History of Present Illness Reason for Consultation: RACHEL in setting of pancreatic CA Requesting Physician: Dr Browning Attending Physician: Alex Magana MD History of Present Illness 86 y/o F whom I'm asked to see for RACHEL w/ pancreatic CA diagnosed one month back was admitted 02/06 w/ failure to thrive and ambulatory dysfunction after presenting for OP ERCP which she did undergo same day. PMH includes CAD w/ stent/IA 11/2020, severe COPD, hypothyroid. She had transient A fib around time of IA; had AF w/ RVR to 160s at admission. Also ? hx of cardiomyopathy on entresto as OP (on hold here). CT scan for abd pain 01/02 showed large pancreatic mass dx'd as pancreatic CA 01/09. her admission creatinine was 2.9; her peak creatinine was yesterday at 3.4; her creatinine today is 3. Few OP data are available to establish a baseline; however on 01/26 as OP her creatinine was 1.2. And on December 26 and January 09 of this year, creatinine was 0.9. She is not a CTX candidate/not interested and plans to establish with radiation oncology. She is following w/ [facility]iative care as OP; recently started oral hydromorphone which helps pain but lessens ambulatory ability. She had severe RUQ/epigastric abd pain overnight markedly worsened from earlier in the day and CT a/p w/ IV contrast was contemplated but ultimately deferred as she had slight improvement in sx and d/t renal function. Abd pain continues to strike intermittently adn remains severe > she describes as spasms of burning crampy pain under her ribs; worse w/ swallowing any food/liquid. no N currently; no dysuria or flank pain but does endorse some darker urine; no edema; no sob. + generalized weakness. She is currently on cefepime and flagyl; no IVF at this time; she is 8.6L + on the admission according to I/O. has made 400 mL UOP today + 1; also BM x 4 so far today. KAYLA Fajardo and daughter Mireya at bedside during interview. Allergies Allergy/AdvReac Type Severity Reaction Status Date / Time NSAIDS (Non-Steroidal Allergy Intermediate uler Verified 02/06/22 10:12 Anti-Inflamma Sulfa (Sulfonamide Allergy Intermediate Difficulty Verified 02/06/22 10:12 Antibiotics) Breathing sulfamethoxazole Allergy Intermediate Difficulty Verified 02/06/22 10:12 Breathing aspirin Allergy Unknown BREATHING Verified 02/06/22 10:12 DIFFICULTIES Penicillins Allergy Unknown AMPICILLIN Verified 02/06/22 10:12 rofecoxib Allergy Unknown RASH AND Verified 02/06/22 10:12 ASTHMA peanut AdvReac Unknown ORAL Verified 02/06/22 10:12 SWELLING peas AdvReac Unknown Unknown Verified 02/07/22 11:48 soy AdvReac Unknown ORAL Verified 02/06/22 10:12 SWELLING Home Medications Medication Instructions Recorded Confirmed Type apixaban 2.5 mg tablet (Eliquis) 2.5 mg PO BID 02/24/21 02/06/22 History cyanocobalamin (vitamin B-12) 1,000 mcg PO QAM 02/24/21 02/06/22 History 1,000 mcg capsule sacubitril 24 mg-valsartan 26 mg 1 tab PO QAM 02/24/21 02/06/22 History tablet (Entresto) albuterol sulfate 90 mcg/actuation See Rx Instructions INH .COMPLEX 07/09/21 06/17/22 Rx aerosol inhaler (Ventolin HFA) PRN #8.5 gm budesonide-formoterol HFA 160 1 puff INHALATION PM g 04/02/21 02/06/22 History mcg-4.5 mcg/actuation aerosol inhaler (Symbicort) cholecalciferol (vitamin D3) 50 3,000 mcg PO QAM cap 04/02/21 02/06/22 History mcg (2,000 unit) capsule Accolate 20 mg tablet (zafirlukast) 20 mg PO BID #180 tab NS 06/30/21 02/06/22 Rx bisoprolol fumarate 5 mg tablet 5 mg PO QAM 09/22/21 02/06/22 History omeprazole 40 mg capsule,delayed 40 mg PO DAILY PRN 09/22/21 02/06/22 History release spironolactone 25 mg tablet 25 mg PO QAM tab 09/22/21 02/06/22 History atorvastatin 10 mg tablet 20 mg PO QPM tab 12/19/21 02/06/22 History clopidogrel 75 mg tablet (Plavix) 75 mg PO QAM 12/19/21 02/06/22 History levothyroxine 75 mcg tablet 75 mcg PO QAM 01/07/22 02/06/22 History (Synthroid) vit A 9,650 unit-vit C 195 mg-vit 1 cap PO QAM 01/07/22 02/06/22 History E 95 vqep-fmhhcp-[id number]-zn-millinery copyist capsule hydrocortisone 2.5 % topical 1 applic TOPICAL BID #453.6 g 01/26/22 02/06/22 Rx ointment ciprofloxacin HCl 500 mg tablet 500 mg PO BID #6 tab 02/06/22 Rx (Cipro) Patient History Medical History Atrial fibrillation with RVR left chest - Loop recorder > follows with Dr. Krishnamurthy > Soren CHF (congestive heart failure) EF 60% on 2020 echo Coronary artery disease s/p stent 11/2020 for 99% mid LAD lesion, follows with [facility] History of ischemic cardiomyopathy well compensated per [facility] HTN (hypertension) Hyperlipidemia Hypothyroidism LBBB (left bundle branch block) per records present since at least 11/2020 Osteopenia PAD (peripheral artery disease) Pancreatic cancer Pulmonary hypertension mild, 03/2021 echo Severe chronic obstructive pulmonary disease rare res inh use Surgical History H/O basal cell carcinoma excision History of cataract surgery bilat History of colonoscopy History of hip replacement bilat History of repair of rotator cuff bilat History of total abdominal hysterectomy Hx of angioplasty Jul [address] Krishnamurthy of right leg Stented coronary artery CHEPE to LAD > November 2020 - [facility] with Dr. Hammond Family History Father , age 50 No problems noted. Mother , age 58-suicide No problems noted. Other Hypertension Multiple sclerosis Prostate cancer Denies family history of Ovarian cancer Breast cancer Lung cancer Colorectal cancer Social History Smoking Status: Never smoker Second Hand Exposure: No; Do You Dip or Chew Tobacco: No; Tobacco Cessation Education Requested by Patient: No Hx Alcohol Use: No Hx Substance Use: No Preferred Language: Tajik Communication Ability: Effective Visual Impairment: Limited Hearing Ability: Use of Hearing Aid Baler Operator Required: No Beliefs That Will Affect Care: None marital status: Current Living Situation: Alone current occupational status: retired current occupation: Retired How many Children do You have: 2 Other Information That Helps Us Care for You: No Feels Safe at Home: Yes Safety Concerns: Feels Safe At This Time Childhood Exposure to Second-Hand Smoke: No caffeine: No Dental Care, Regularly: Yes Physical Activity Frequency: 3-4 Times per Week Seatbelt Use: always Sunscreen Use: Yes Assistive Devices: Cane Review of Systems Review of Systems: All systems reviewed & are unremarkable except as noted in HPI & below Physical Exam Constitutional: well developed, + cachectic, + frail appearing and co operative; no acute distress Eyes: EOM intact bilaterally ENMT: Ears: no external ear abnormality Nose: no external nose abnormality Mouth: + dry oral mucous membranes Neck: no nuchal rigidity Respiratory: normal respiratory effort Auscultation: + diminished lung sounds Cardiovascular: Rate/Rhythm: regular rate and regular rhythm Extremities: no edema Gastrointestinal (Abdomen): Inspection/Auscultation: + abdomen distended and + hypoactive bowel sounds Percussion/Palpation: + abdomen tender (vijaya RUQ; intermittent pain jags that disrupt our conversation), + guarding and + abdomen firm Musculoskeletal: Extremities: strength 5/5 throughout Skin: no rashes, warm and dry Neurologic: mora, fluent speech, no tremor Psychiatric: Orientation: oriented x 3 Insight: good insight Judgement: good judgement Genitourinary: no leos Results & Data ([facility]) Vital Signs (Past 12 Hours) Vital Signs Temp Pulse Pulse Resp BP Pulse Ox 02/09/22 11:25 36.5 C 76 18 124/57 L 97 02/09/22 08:00 69 02/09/22 07:25 36.7 C 73 19 91/54 L 97 02/09/22 04:03 36.6 C 78 16 104/57 L 98 Laboratory Results 02/09/22 01:23 02/09/22 01:23 urine microscopy only Diagnostic Findings CT a/p non con this PM Lung base: There are small bilateral pleural effusions with mild bibasilar atelectasis. Abdominal cavity: There is interval increase in abdominal ascites with fluid surrounding the liver and spleen. Liver: The liver is homogeneous in attenuation on these limited noncontrast images..There is extensive pneumobilia present related to interval biliary stent being placed. Spleen: The spleen is homogeneous in attenuation on these limited noncontrast images. Pancreas: There is evidence for interval increase in size of pancreatic head/ neck mass now measuring approximately 6.1 x 5.9 cm. Biliary stent is seen extending through the mass. Vascular structures previously identified cannot be visualized due to lack of intravenous contrast. Vascular ultrasound demonstrated high-grade stenosis of the proximal to mid SMA. Gall Bladder: There is syrinx depicted is excretion of contrast within the gallbladder. Adrenal glands: The adrenal glands are normal in size and attenuation on these limited noncontrast images. Kidneys: The kidneys are homogeneous in attenuation on these limited noncontrast images. There is no evidence for gross renal mass, calculus or hydronephrosis bilaterally. Bowel: There is a small to moderate size hiatal hernia. The small bowel loops are fluid-filled without evidence for dilatation or obstruction. Findings are suspicious for ileus versus gastroenteritis. There is no evidence for mass lesion. There is sigmoid diverticulosis without evidence for diverticulitis. There are no inflammatory changes present. There is no evidence for free air. Bladder: The pelvic structures are obscured by bilateral hip replacements. : The pelvic structures are obscured by bilateral hip replacements. Vasculature: There is no evidence for focal aneurysmal dilatation of the abdominal aorta. Atherosclerotic calcification is present. Osseous structures: There is no acute osseous pathology. IMPRESSION: 1. Increasing size of pancreatic head/neck mass . The study is limited by lack of IV contrast. 2. Biliary stent in place with pneumobilia present. 3. Previously identified vascular compromise cannot be evaluated by lack of intravenous contrast. However, stenosis of the proximal to mid SMA was demonstrated on ultrasound. 4. Mild abdominal ascites. 5. Fluid-filled loops of small bowel most characteristic of an ileus versus gastroenteritis. 6. Small bilateral pleural effusions and minimal bibasilar atelectasis. 7. Additional nonacute findings are delineated above.
--- NOTE | 2022-02-09 15:37 | Radiation OncologyConsultation ---
Date of Consultation February 09, 2022 Assessment & Plan (1) Pancreatic cancer: Assessment: Ms. Alfaro is an 86-year-old female with a recent diagnosis of locally advanced/unresectable pancreatic cancer ([id number]). The patient did have a PET/CT scan which did reveal multiple pulmonary findings which were inconclusive and have not been biopsied so metastatic disease cannot be ruled out The patient recently had an ERCP with biliary stent placement by Dr. Moulton on at [facility]. The patient was admitted to the hospital due to significant pain and discomfort and abdominal distention. The patient was seen by Dr. Moctezuma for medical oncology in the outpatient setting; at that consultation, the patient declined chemotherapy and Dr. Moctezuma recommend consideration for radiation therapy and palliative care consultation. Have now been asked to see the patient to discuss the role of radiation therapy. Recommendation: Palliative external beam radiation therapy to pancreatic mass to help with patient's pain. 5-10 fractions. Patient does not need to remain in the hospital for treatment. Plan: 1. CT simulation tomorrow for treatment planning for radiation therapy. No IV contrast. Plan to start treatment within several days. 2. Palliative care input could be appreciated in the inpatient or outpatient setting. 3. Continue pain management as per primary medical team. 4. Medical oncology input in the outpatient setting. 5. Patient and family encouraged to call us with any further questions or concerns. Rationale/Explanation of Treatment: I explained the indications, alternatives, benefits, risks and side effects of external beam radiation therapy. I then discussed radiation therapy side effects for treatment which include, but are not limited to, skin erythema, dry/moist desquamation of the skin, hyperpigmentation, telangiectasias, damage to the heart and development of cardiovascular disease, damage to the lungs including radiation pneumonitis, pulmonary fibrosis, decrease in pulmonary function, cough, fistula formation, tracheal stenosis, esophageal stenosis, esophageal perforation, dysphagia, nausea, vomiting, ulcers in stomach/bowel, gastritis, gastric perforation, bowel perforation, bowel obstruction, weight loss, dehydration, decreased appetite, liver damage including hepatitis and liver failure, damage to the kidneys i ncluding decreased renal function and renal failure, spinal cord damage including myelopathy, fatigue and secondary malignancy. The patient and family had multiple questions which were answered to their full satisfaction. Thank you for allowing us to participate in the care of this patient. This chart was completed in part utilizing [employer] Speech Voice Recognition software. Attempts were made to minimize the grammatical errors, random word insertions, pronoun errors and incomplete sentences. Any formal questions or concerns about the content, text or information contained within the body of this dictation should be directly addressed to the provider for clarification. Izabel Balderas MD Department of Radiation Oncology [facility] History of Present Illness Attending Physician: Alex Magana MD History of Present Illness 12/26/2021. CTA chest. IMPRESSION: 1. No evidence for an aortic dissection. 2. Small moderate hiatus hernia. 3. Mild thickening of the esophagus which is partially filled with fluid. This may represent an esophagitis with associated esophageal dysmotility or gastroesophageal reflux. 4. Trace perisplenic fluid. 5. Subtle 3.8 cm groundglass density within the right upper lobe. This could represent scarring or a mild pneumonitis. [address] follow-up recommended to ensure resolution. 6. Mild emphysema. 01/02/2022. CT of abdomen/pelvis. IMPRESSION: 1. 3.6 cm pancreatic neck mass is suggestive of adenocarcinoma. This results in upstream pancreatic atrophy and pancreatic ductal dilation. Additionally, there is moderate intrahepatic and extrahepatic biliary ductal dilation. Follow-up GI consultation recommended. 2. The mass circumferentially encases the superior mesenteric artery and markedly narrows the portal splenic confluence, splenic and superior mesenteric veins with abdominal collateral vessels. 3. Distended stomach and duodenum redemonstrated suspicious for obstruction. 4. Distended contrast filled gallbladder with wall thickening and probable vicarious excretion. 5. Mesenteric adenopathy suggests lymphatic metastasis. 6. Small volume of abdominal pelvic ascites. 7. Additional findings as above. 01/09/2022. Upper EUS. A 36 mm mass was identified in the uncinate process of the pancreas. This was staged as T4N1 due to involvement of superior mesenteric artery. 01/09/2022. Pancreas, neck, FNA. Atypical proliferation of epithelial cells mo st consistent with adenocarcinoma of pancreatic ductal origin is seen. Lymph node, devan hepatis: Insufficient for diagnosis. 01/26/2022. Medical oncology consultation with Dr. Moctezuma. Referral to palliative care and radiation oncology. Completion of blood work. PET/CT. 02/02/2022. Palliative care consultation with Dr. Louie. Pain management optimized. Return to clinic in 2 weeks. 02/04/2022. PET/CT. IMPRESSION: Increased metabolic activity within the neck of the pancreas, in keeping with pancreatic adenocarcinoma. Ground-glass opacities within the right upper lobe may represent a recent aspiration event. There is additional low-level metabolic activity within the right perihilar region with more solid right lung nodules which may represent metastatic disease. Distension of the stomach may be due to partial obstruction from the pancreatic mass. Trace abdominal ascites. 02/06/2022. ERCP by Dr. Moulton. Impression: A segmental biliary stricture was found in the lower third of the main bile duct. The stricture was malignant appearing. A segmental biliary stricture was found in the common hepatic duct. Biliary sphincterotomy was performed. Biliary stent placed. 02/06/2022. Patient admitted after ERCP due to symptoms including abdominal pain and distention which is significant. 02/08/2022. CT of abdomen/pelvis. IMPRESSION: 1. Increasing size of pancreatic head/neck mass . The study is limited by lack of IV contrast. 2. Biliary stent in place with pneumobilia present. 3. Previously identified vascular compromise cannot be evaluated by lack of intravenous contrast. However, stenosis of the proximal to mid SMA was demonstrated on ultrasound. 4. Mild abdominal ascites. 5. Fluid-filled loops of small bowel most characteristic of an ileus versus gastroenteritis. 6. Small bilateral pleural effusions and minimal bibasilar atelectasis. 7. Additional nonacute findings are delineated above. 02/09/2022. KUB. IMPRESSION: 1. Nonobstructive bowel gas pattern. No pn eumatosis or pneumoperitoneum. 2. Common bile duct stent in unchanged positioning. Allergies Allergy/AdvReac Type Severity Reaction Status Date / Time NSAIDS (Non-Steroidal Allergy Intermediate uler Verified 02/06/22 10:12 Anti-Inflamma Sulfa (Sulfonamide Allergy Intermediate Difficulty Verified 02/06/22 10:12 Antibiotics) Breathing sulfamethoxazole Allergy Intermediate Difficulty Verified 02/06/22 10:12 Breathing aspirin Allergy Unknown BREATHING Verified 02/06/22 10:12 DIFFICULTIES Penicillins Allergy Unknown AMPICILLIN Verified 02/06/22 10:12 rofecoxib Allergy Unknown RASH AND Verified 02/06/22 10:12 ASTHMA peanut AdvReac Unknown ORAL Verified 02/06/22 10:12 SWELLING peas AdvReac Unknown Unknown Verified 02/07/22 11:48 soy AdvReac Unknown ORAL Verified 02/06/22 10:12 SWELLING Home Medications Medication Instructions Recorded Confirmed Type apixaban 2.5 mg tablet (Eliquis) 2.5 mg PO BID 02/24/21 02/06/22 History cyanocobalamin (vitamin B-12) 1,000 mcg PO QAM 02/24/21 02/06/22 History 1,000 mcg capsule sacubitril 24 mg-valsartan 26 mg 1 tab PO QAM 02/24/21 02/06/22 History tablet (Entresto) albuterol sulfate 90 mcg/actuation See Rx Instructions INH .COMPLEX 02/28/21 02/06/22 Rx aerosol inhaler (Ventolin HFA) PRN #8.5 gm budesonide-formoterol HFA 160 1 puff INHALATION PM g 04/02/21 02/06/22 History mcg-4.5 mcg/actuation aerosol inhaler (Symbicort) cholecalciferol (vitamin D3) 50 3,000 mcg PO QAM cap 04/02/21 02/06/22 History mcg (2,000 unit) capsule Accolate 20 mg tablet (zafirlukast) 20 mg PO BID #180 tab NS 06/30/21 02/06/22 Rx bisoprolol fumarate 5 mg tablet 5 mg PO QAM 09/22/21 02/06/22 History omeprazole 40 mg capsule,delayed 40 mg PO DAILY PRN 09/22/21 02/06/22 History release spironolactone 25 mg tablet 25 mg PO QAM tab 09/22/21 02/06/22 History atorvastatin 10 mg tablet 20 mg PO QPM tab 12/19/21 02/06/22 History clopidogrel 75 mg tablet (Plavix) 75 mg PO QAM 12/19/21 02/06/22 History levothyroxine 75 mcg tablet 75 mcg PO QAM 01/07/22 02/06/22 History (Synthroid) vit A 9,650 unit-vit C 195 mg-vit 1 cap PO QAM 01/07/22 02/06/22 History E 95 jyca-[id number]-xqst-zn-ad copy writer capsule hydrocortisone 2.5 % topical 1 applic TOPICAL BID #453.6 g 06/06/22 06/17/22 Rx ointment ciprofloxacin HCl 500 mg tablet 500 mg PO BID #6 tab 02/06/22 Rx (Cipro) Patient History Medical History (Updated 02/08/22 @ 18:19 by Kelby Browning MD) Atrial fibrillation with RVR left chest - Loop recorder > follows with Dr. Krishnamurthy > Eliquis CHF (congestive heart failure) EF 60% on 2020 echo Coronary artery disease s/p stent 11/2020 for 99% mid LAD lesion, follows with [facility] History of ischemic cardiomyopathy well compensated per [facility] HTN (hypertension) Hyperlipidemia Hypothyroidism LBBB (left bundle branch block) per records present since at least 11/2020 Osteopenia PAD (peripheral artery disease) Pancreatic cancer Pulmonary hypertension mild, 03/2021 echo Severe chronic obstructive pulmonary disease rare res inh use Surgical History H/O basal cell carcinoma excision History of cataract surgery bilat History of colonoscopy History of hip replacement bilat History of repair of rotator cuff bilat History of total abdominal hysterectomy Hx of angioplasty Jul [address] Krishnamurthy of right leg Stented coronary artery CHEPE to LAD > November 2020 - [facility] with Dr. Hammond Family History Father , age 50 No problems noted. Mother , age 58-suicide No problems noted. Other Hypertension Multiple sclerosis Prostate cancer Denies family history of Ovarian cancer Breast cancer Lung cancer Colorectal cancer Social History Smoking Status: Never smoker Second Hand Exposure: No; Do You Dip or Chew Tobacco: No; Tobacco Cessation Education Requested by Patient: No Hx Alcohol Use: No Hx Substance Use: No Preferred Language: Polish Communication Ability: Effective Visual Impairment: Limited Hearing Ability: Use of Hearing Aid Insurance Sales Professional Required: No Beliefs That Will Affect Care: None marital status: Current Living Situation: Alone current occupational status: retired current occupation: Retired How many Children do You have: 2 Other Information That Helps Us Care for You: No Feels Safe at Home: Yes Safety Concerns: Feels Safe At This Time Childhood Exposure to Second-Hand Smoke: No caffeine: No Dental Care, Regularly: Yes Physical Activity Frequency: 3-4 Times per Week Seatbelt Use: always Sunscreen Use: Yes Assistive Devices: Cane Review of Systems Review of Systems: Fatigue. Abdominal pain. Nausea. Progressively the pain is getting worse over time. Physical Exam Constitutional: + acute distress, + ill appearing and + thin Gastrointestinal (Abdomen): Abdominal distention noted. Guarding. Tenderness to palpation. Psychiatric: A+Ox3, euthymic affect Time Spent Attending I spent 25 minutes in preparation for this consultation including reviewing all the clinical records, reviewing laboratory studies, pathology reports and imaging results. I spent 30 minutes with direct face to face interaction with the patient and/or family including performing a physical exam and answering all questions. I spent 20 minutes documenting this patient's visit. I spent 5 minutes speaking with the following providers regarding this patient's care: Dr. Magana.
[2022-02-09] MEDS: HYDROmorphone INJ 0.5 MG/0.5 ML SYR IV STA ×2 (15:51→17:21)
--- NOTE | 2022-02-09 16:47 | Billing Data ---
Date of Service February 09, 2022 Coding Level of Care Code 88393 Subseq Hosp Care Lvl 3
--- NOTE | 2022-02-09 17:25 | Communication Note ---
Date of Service: February 09, 2022 Spoke with patient and her family (daughter, sister) at the bedside today for about an hour. We spent ample time discussing her pain and renal dysfunction as primary sources of hospitalization at present -- with the goal of controlling pain to a more manageable level prior to returning home. Through this discussion, we then talked about uayio-os-pizn outside the hospital. Ms. Alfaro's family expressed frustration with information coming from so many places and different health systems. Engaged in reflective listening and empathized with how frustrating this must have been. Discussed roles and expectations of each speciality. With Ms. Alfaro involved in the discussion, family noted that they really wanted to get pain under control so she could go home with hospice and be comfortable. They asked about who would be "leading" this process following discharge -- discussed w/ them that, pending her status at discharge, likely will be a combination of the hospice agency and primary care doctor. They mentioned to me that their follow-up with oncology won't be for a few weeks. This then led into discussion about overall prognosis (and whether or not weeks were left to work with). Given her current nutritional status, renal function, and tumor burden, they understand that her prognosis is guarded and that objective analysis of the situation is somewhat skewed by her current level of pain preventing things like eating, drinking. The conversation naturally led towards an estimation thereafter - to which ~week(s) range was suggested as a plausible prognostic timeframe. It was recommended that having family plan around this would ensure they could achieve goals such as visitation, etc. Empathized and reflected with patient/family and their questions, concerns throughout this discussion to the best of my ability. Informed them that I am on the rest of this week to aid with Ms. Alfaro's care. Attempt more aggressive pain control into the evening hours -- patient reporting more phasic pain throughout the afternoon. 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 Can attempt clears as tolerated. Resident Activity Tracking Resident Involvement: Resident Care Provided Care Provided: Adult Hospital Medicine
[2022-02-09] MEDS ORDERED: ALUMINUM/MAGNESIUM SUSP 18 ML, LIDOCAINE VISCOUS 2% SOLN 6 ML, BARCODE IDENTIFIER 1 EA PO ONE (18:06)
[2022-02-09] MEDS ORDERED: ACETAMINOPHEN IV STA (18:06)
[2022-02-09] MEDS: ACETAMINOPHEN 65 ML IV PRN (18:07)
[2022-02-09] MEDS ORDERED: FAMOTIDINE 20 MG TAB PO SCH (18:15)
[2022-02-09] MEDS: ALBUTEROL HFA 8 GM INHALER INH PRN (19:57)
[2022-02-09] MEDS: ATORVASTATIN 20 MG TAB PO SCH ×2 (20:14→20:20)
[2022-02-09] MEDS: FLUTICASONE/VILANTEROL 100/25MCG 14 PUFFS/INHALER INH SCH (20:14)
[2022-02-09] MEDS ORDERED: CEFEPIME 500 MG in SYRINGE 0 ML IV SCH (21:00)
[2022-02-09] MEDS: LACTATED RINGER'S 1,000 ML IV SCH ×2 (21:19→21:57)
[2022-02-10 01:15] LABS: A calco-baum cmplx NotReported Not Detected (NotDetected); Bact fragilis Not Reported Not Detected (NotDetected); C auris Not Reported Not Detected (NotDetected); CTX-M Resistant Gene Not Detected (NotDetected); Calbicans Not Reported Not Detected (NotDetected); Candida glabrata Not Reported Not Detected (NotDetected); Candida krusei Not Reported Not Detected (NotDetected); Cneoformans/gatti Not Reported Not Detected (NotDetected); Cparapsilosis Not Reported Not Detected (NotDetected); Ctropicalis Not Reported Not Detected (NotDetected); E cloacae compx Not Reported Not Detected (NotDetected); Efaecalis Not Reported Not Detected (NotDetected); Efaecium Not Reported Not Detected (NotDetected); Enterobacterales DETECTED (NotDetected); Enterobacterales Not Reported DETECTED (NotDetected); Escherichia coli Not Reported DETECTED (NotDetected); H influenzae Not Reported Not Detected (NotDetected); IMP Resistant Gene Not Detected (NotDetected); K aerogenes Not Reported Not Detected (NotDetected); KPC Resistant Gene Not Detected (NotDetected); Koxytoca Not Reported Not Detected (NotDetected); Kpneumoniae grp Not Reported Not Detected (NotDetected); Lmonocyt Not Reported Not Detected (NotDetected); N meningitidis Not Reported Not Detected (NotDetected); NDM Resistant Gene Not Detected (NotDetected); OXA 48 Like Resistant Gene Not Detected (NotDetected); P aeruginosa Not Reported Not Detected (NotDetected); Proteus spp Not Reported Not Detected (NotDetected); Salmonella spp Not Reported Not Detected (NotDetected); Smarcescens Not Reported Not Detected (NotDetected); Staph lugdunensis Not Reported Not Detected (NotDetected); Staph spp. Not Reported Not Detected (NotDetected); Staphaureus Not Reported Not Detected (NotDetected); Staphepi Not Reported Not Detected (NotDetected); Stenmaltophilia Not Reported Not Detected (NotDetected); Strep agal(GrpB) Not Reported Not Detected (NotDetected); Strep pneum Not Reported Not Detected (NotDetected); Strep pyog (GrpA) Not Reported Not Detected (NotDetected); Strep spp Not Reported Not Detected (NotDetected); VIM Resistant Gene Not Detected (NotDetected); mcr-1 Colistin Resistant Gene Not Detected (NotDetected)
[2022-02-10] MEDS: metroNIDAZOLE 500 MG/100 ML BAG IV SCH ×3 (02:16→18:10)
[2022-02-10] MEDS: LEVOTHYROXINE SODIUM 75 MCG TABLET PO SCH (06:22)
--- NOTE | 2022-02-10 06:55 | Hospitalist Progress Note ---
Date of Service February 10, 2022 Assessment & Plan (1) Pancreatic cancer: Plan: Kristyn Alfaro is a 86-year-old female with pancreatic cancer presenting for biliary stent placement with Dr. Moulton on 02/06 following with associated weakness and nausea and vomiting. Abdominal pain and distention - - likely multifactorial: bowel & biliary dysmotility; cancer-related pain likely playing a role, as is dyspepsia. - Work-up as follows: - On 02/07: Lipase 976, Pro-Chacho 47, WBC 18 - CT-A/P 02/09: Increase in size of pancreatic mass, biliary stent visualized with pneumobilia, fluid-filled loops of bowel c/w ileus vs. gastroenteritis. 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 Also possible superimposed with insult from ARB? Lower suspicion for post-renal - CT-A/P (02/08): Limited study given non-contrast, but no e/o gross renal mass/calcs/hydro - I&Os reflect small output since arrival and +9L IVF; hold on further fluids for now - Nephrology previously consulted - appreciate insight, recommendations, monitoring - Avoid nephrotoxic medications Gram Negative Bacteremia - BCX now demonstrating growth of GNB - E. coli vs. bacteremia - In setting of previous leukocytosis, procalcitonin, recent procedure, likely genuine and sec to bowel heidi translocation rather than stent infection - Continue cefepime / metronidazole - Will engage in discussions re- goals of care tomorrow with this. Options include treating with PO > brief period of IV ABX vs. stopping completely Paroxysmal atrial fibrillation - - RVR on 02/08 with rates into the 160s, in the setting of hypotension - converted back to sinus rhythm after dose of 0.125mg Digoxin and 150mg IV bolus of amiodarone - restart home bisoprolol dosing - continue Eliquis Pancreatic cancer: - Diagnosed in 12/2021. Has seen palliative care recently. Patient is not interested in chemotherapy, but reports she has plans to see radiation oncology. - PET Scan from 02/04 demonstrating partial gastric outlet obstruction due to pancreatic mass as well as concerning findings in late hilar region consistent with potential metastatic disease - S/p ERCP with biliary stent placement on 02/[address] Moulton - Consult radiation oncology while here: geoscientist films obtained 02/10, appreciate further assistance - Resume when appropriate: hydrocodone 1 mg PO Q4h PRN (2 mg makes her groggy) Coronary artery disease: - s/p PCI in 11/2020. - Continue home Plavix and atorvastatin - Holding home regimen of Entresto Congestive heart failure: - Per her report, had some level of reduced EF after her WA. - Last reported echo from 03/2021 with EF 60%. - Cautious IV fluids in the setting of hypotension - Holding home Entresto, diuretic regimen Hypertension: - Holding home antihypertensive medications in the setting of hypotension Severe chronic obstructive pulmonary disease: - No wheezing on exam today. - Continue budesonide-formoterol (or formulary equivalent), and Accolate - Albuterol PRN Hypothyroidism: - TSH was 2.0 in 10/2021. No signs/symptoms of hypo-/hyperthyroidism. - Continue home Synthroid 75 mcg GERD (gastroesophageal reflux disease): - Continue PPI Dispo: MS/T Diet: Continue clear liquid diet given fluctuating abdominal tenderness DVT ppx: Continue home eliquis CODE STATUS: DNR/DNI (2) Abdominal pain: (3) Coronary artery disease: (4) HTN (hypertension): (5) Hyperlipidemia: (6) Severe chronic obstructive pulmonary disease: (7) Congestive heart failure: Admission and Anticipated Discharge Date Admission Date: February 08, 2022 Supervising Physician Co-Signing Physician Notes I personally examined the patient and verified all schofield points of history and exam, discussed case, and agree with decision making with Dr Wong. Pain much better today. Really has only had 1 episode similar to what she was having all day yesterday. Family presentanswered all questions the best my ability and to their satisfaction. Vitals noted, in general she is awake and alert frail appearing but in no pain. HEENT normocephalic atraumatic mucous membranes moist. Abdomen soft mild to moderate distention without guarding rebound or rigidity, no focal tenderness. Neuro shows cranial nerves II through XII be grossly intact gross motor and sensory are intact. Abdominal painlikely multifactorial, but given that it is now improving fairly quickly, I wonder about initial pain from stent placement that is abating. Given gram-negative bacteremia, also wonder about infectious possibility, but seems to be improving with antibiotics. Continue antibiotics and supportive care. With overall poor prognosis of pancreatic cancer, patient seems to overall have quality of life goalsis setting up home hospice, only wants radiation treatment not chemo/etc. Continue antibiotics for gram-negative bacteremiaawait sensitivities. Probably 30 minutes spent in the room predominantly answering questions and addressing concerns. Otherwise as above. Subjective Unfortunately wasn't a very restful night. Patient said she still had waxing/waning periods of pain that kept her up. Thankfully improved to this AM. No CP/palpitations. No n/v. Review of Systems Review of Systems: as per HPI Physical Exam Physical Exam: General: 86-year old female who is alert, oriented, and appears in no acute distress. HEENT: NCAT. - Eyes - Sclera are white, anicteric, and without injection. - Mouth - MMM - Neck - supple, no appreciable JVD Cardiac: Normal rate and regular rhythm; S1 and S2 present with no murmurs, rubs, or gallops. Pulmonary: Good respiratory effort with symmetric expansion of the chest. No use of accessory muscles. Lungs were clear to auscultation bilaterally with no crackles or wheezes. Abdominal: Normoactive bowel sounds. Abdomen is distended and mildly firm to the touch; no rebound/guarding. +epigastric discomfort TTP. +tymphanic Extremities: Upper and lower extremities are warm and well perfused. Psych: Well-developed, well-nourished, appropriately dressed for occasion. Behavior is cooperative and appropriate. Affect is WNL. Insight is appropriate. Results & Data Results & Data ([facility]) Vital Signs (Past 12 Hours) Vital Signs Temp Pulse Pulse Resp BP Pulse Ox 02/10/22 04:00 36.7 C 79 16 122/69 97 02/10/22 00:00 36.7 C 82 86 16 115/67 97 02/09/22 20:00 37.3 C 88 18 112/64 95 02/09/22 19:59 44 L 18 94 02/09/22 19:34 94
[2022-02-10 07:00] LABS: Eosinophils # (auto) 0.04 K/uL (0-0.5); Eosinophils % (auto) 0.3 %; Hematocrit (blood only) 28.6 % (37-47); Hemoglobin 9.5 g/dL (12.0-16.0); Immature Granulocytes # (auto) 0.05 K/uL (0.00-0.02); Immature Granulocytes % (auto) 0.4 %; Lymphocytes # (auto) 0.38 K/uL (1.2-3.4); Lymphocytes % (auto) 3.3 %; Mean Corpuscular Hemoglobin 30.4 pg (25-34); Mean Corpuscular Hgb Conc 33.2 g/dL (32-36); Mean Corpuscular Volume 91.7 fL (80-100); Mean Platelet Volume 11.9 fL (7.4-10.4); Monocytes % (auto) 6.1 %; Neutrophils # (auto) 10.29 K/uL (1.4-6.5); Neutrophils % (auto) 89.9 %; Platelet Count 144 K/uL (130-400); RDW Coefficient of Variation 16.8 % (11.5-14.5); RDW Standard Deviation 56.1 fL (36.4-46.3); Red Blood Count 3.12 M/uL (4.2-5.4); White Blood Count 11.46 K/uL (4.8-10.8)
[2022-02-10 07:14] LABS: Albumin Level 2.6 gm/dl (3.4-5.0); BUN Creatinine Ratio 24.4 (10-20); Bilirubin,Total 1.7 mg/dl (0.2-1.0); C Reactive Protein 17.05 mg/dl (0-0.5); Creatinine Clr Calc Pharmacy 13.7 ml/min; Est GFR (African American) 19.8 ml/min; Est GFR (Non-African American) 17.1 ml/min; Globulin 2.6 gm/dl (2.5-4.0); Phosphorus 3.6 mg/dl (2.5-4.9); Total Protein 5.2 gm/dl (6.0-8.3)
[2022-02-10] MEDS: CEFEPIME 2,000 MG in SYRINGE 0 ML IV SCH (08:47)
[2022-02-10] MEDS: CLOPIDOGREL BISULFATE 75 MG TAB PO SCH (08:48)
[2022-02-10] MEDS: BISOPROLOL FUMARATE 5 MG TAB PO SCH (08:48)
[2022-02-10] MEDS: APIXABAN 2.5 MG TAB PO SCH ×2 (08:49→21:23)
[2022-02-10] MEDS: ZAFIRLUKAST 20 MG PO SCH ×2 (08:49→21:26)
[2022-02-10] MEDS: ACETAMINOPHEN 65 ML IV PRN (08:52)
[2022-02-10] MEDS: SUCRALFATE 1 GM/10 ML UDC PO SCH ×4 (09:00→21:25)
[2022-02-10] MEDS ORDERED: FAMOTIDINE 20 MG in SYRINGE 3 ML IV SCH (09:00)
[2022-02-10] MEDS ORDERED: levoFLOXacin/D5W 500 MG/100 ML BAG IV SCH (11:00)
[2022-02-10] MEDS ORDERED: PANTOprazole 40 MG in SYRINGE 0 ML IV SCH (11:00)
[2022-02-10] MEDS ORDERED: HYDROmorphone INJ 1 MG/ML SYRINGE IV PRN (13:50)
[2022-02-10] MEDS ORDERED: HYDROmorphone INJ 0.5 MG/0.5 ML SYR IV PRN (13:50)
--- NOTE | 2022-02-10 14:30 | Communication Note ---
Date of Service: February 10, 2022 GI performed an ERCP for biliary decompression for this pt with non resectable pancreatic adenocarcinoma (involvment of vessels, invasion of local lymph nodes) on Tuesday 02/06. Because, at the time of expected discharge, the daughter, who we spoke with on the phone seemed unready to provide care for the pt at home, we asked for the pt to be admitted and have case management coordinate care. Also recommend palliative care/hospice. GI was consulted 02/06 after the ERCP, for pain - see PN and opinion that pain likely secondary to pancreatic cancer. She had seen Dr. Moctezuma (oncology) at [facility] on 01/26/22 and offered palliative chemo which she declined. She had seen [facility] palliative care medicine as an OP for pain control. Unfortunately, at this point we do not have other options for tx of this patient's pancreatic cancer. Recommend Case management and palliative care/hospice to help patient with appropriate pain control and living situation. GI will sign off.
--- NOTE | 2022-02-10 18:07 | Billing Data ---
Date of Service February 10, 2022 Coding Level of Care Code 65696 Subseq Hosp Care Lvl 3
--- NOTE | 2022-02-10 18:08 | Nephrology Progress Note ---
Date of Service February 10, 2022 Assessment & Plan (1) Acute renal failure: Plan: improving stage 3 RACHEL from ischemic ATN in patient with rapidly advancing pancreatic cancer and active ileus/ high grade SMA stenosis. urine output not tracked past day >her admission creatinine 02/06 was 2.9; her peak creatinine was 02/08 at 3.4; her creatinine today is 2.5. Few OP data are available to establish a baseline; however on 01/26 as OP her creatinine was 1.2. And on December 26 and January 09 of this year, creatinine was 0.9 at [facility]. >was already w/ advancing though early renal failure earlier this month >now with severe RACHEL in setting of acceptable for now chemistries (though n otable /slightly improved acidosis) and no obvious vol OL; also hx of renal ischemia presumably w/ A fib and RVR as well as lower BP ongoing through midday 02/09 >daily BMP >>pls get UACM >no IV contrast pls or nsaids; cont to hold entresto >reasonable to continue LR at 50 mL hourly; wean as tolerated -no fluid limit or specific w/u for hyponatremia while on liquid diet; renal diet reasonable >did not discuss dialysis with her though we may have to discuss at some point; very poor candidate and not at all clear to me this would be offered -grim prognosis and ongoing discussions of hospice are appropriate Admission and Anticipated Discharge Date Admission Date: February 08, 2022 Subjective pain jags off and on but overall abd pain better controlled today than yesterday ; had preliminary bowen established/tattoo'd for XRT; some chest tightness/exertional dypsnea when she was up to bathroom Review of Systems Review of Systems: All systems reviewed & are unremarkable except as noted in Subjective Physical Exam Constitutional: well developed, + cachectic, + frail appearing and cooperative; no acute distress Eyes: EOM intact bilaterally ENMT: Ears: no external ear abnormality Nose: no external nose abnormality Mouth: + dry oral mucous membranes Neck: no nuchal rigidity Respiratory: normal respiratory effort Auscultation: + diminished lung sounds Cardiovascular: Rate/Rhythm: regular rate and regular rhythm Extremities: no edema Gastrointestinal (Abdomen): Inspection/Auscultation: + abdomen distended (very much) and + hypoactive bowel sounds Percussion/Palpation: + abdomen tender (vijaya RUQ; intermittent pain jags that disrupt our conversation), + guarding and + abdomen firm Musculoskeletal: Extremities: strength 5/5 throughout Skin: no rashes, warm and dry Psychiatric: Orientation: oriented x 3 Insight: good insight Judgement: good judgement Results & Data ([facility]) Vital Signs (Past 12 Hours) Vital Signs Temp Pulse Pulse Resp BP Pulse Ox 02/10/22 15:44 68 02/10/22 13:00 36.8 C 74 20 139/67 96 02/10/22 09:46 71 02/10/22 08:00 37.0 C 86 18 132/63 97 Laboratory Results 02/10/22 06:37 02/10/22 06:37
[2022-02-10] MEDS: LACTATED RINGER'S 1,000 ML IV SCH (18:10)
[2022-02-10] MEDS: ATORVASTATIN 20 MG TAB PO SCH (21:24)
[2022-02-10] MEDS: FLUTICASONE/VILANTEROL 100/25MCG 14 PUFFS/INHALER INH SCH (21:25)
[2022-02-10] MEDS: ALBUTEROL HFA 8 GM INHALER INH PRN (22:32)
[2022-02-11] MEDS: ACETAMINOPHEN 65 ML IV PRN (00:01)
[2022-02-11] MEDS: metroNIDAZOLE 500 MG/100 ML BAG IV SCH ×2 (02:44→10:45)
[2022-02-11] MEDS: LEVOTHYROXINE SODIUM 75 MCG TABLET PO SCH (05:20)
--- NOTE | 2022-02-11 07:04 | Hospitalist Progress Note ---
Date of Service February 11, 2022 Assessment & Plan (1) Pancreatic cancer: Plan: Kristyn Alfaro is a 86-year-old female with pancreatic cancer presenting for biliary stent placement with Dr. Moulton on 02/06 following with associated weakness and nausea and vomiting. Abdominal pain and distention - - likely multifactorial: bowel & biliary dysmotility; cancer-related pain likely playing a role, as is dyspepsia. - Work-up as follows: - On 02/07: Lipase 976, Pro-Chacho 47, WBC 18 - CT-A/P 02/09: Increase in size of pancreatic mass, biliary stent visualized with pneumobilia, fluid-filled loops of bowel c/w ileus vs. gastroenteritis. - US mesenteric (02/08): demonstrating patent SMA, with pneumobilia - Protonix 40 and Pepcid 20mg daily and Simethicone q6h - Pain: Tylenol 650 AC and q6h PRN > Hydromorphone 1mg PO q4h PRN > Hydromorphone 0.5mg IV q4h - If sudden worsening of pain - could consider Doppler of SMA or pending goals of care, analgesia; avoid CTA RACHEL - improving without h/o CKD or renal failure - Presented 02/06 with Cr 2.92 with subsequent peak to 3.38 on 02/08 --> now downtrending - FENa < 1% -- in setting of recent n/v/anorexia [employer], likely prerenal and ATN-component. Also possible superimposed with insult from ARB? Lower suspicion for post-renal - CT-A/P (02/08): Limited study given non-contrast, but no e/o gross renal mass/calcs/hydro - Nephrology previously consulted - appreciate insight, recommendations, monitoring - Avoid nephrotoxic medications - Patient requested cessation of IVF on 02/11 -- think it's reasonable at this point with increasing PO intake E. coli Bacteremia - BCX now demonstrating growth of E. coli resistant to ciprofloxacin - suspect sec to bowel heidi translocation rather than stent infection given clinical/laboratory improvement - Transition cefepime+flagyl --> CFTX daily, end 02/16 - Can likely transition to cefdinir if leaving hospital before 02/16 Paroxysmal atrial fibrillation - - RVR on 02/08 with rates into the 160s, in the setting of hypotension - converted back to sinus rhythm after dose of 0.125mg Digoxin and 150mg IV bolus of amiodarone - restart home bisoprolol dosing - continue Eliquis Pancreatic cancer: - Diagnosed in 12/2021. Has seen palliative care recently. Patient is not interested in chemotherapy, but reports she has plans to see radiation oncology. - PET Scan from 02/04 demonstrating partial gastric outlet obstruction due to pancreatic mass as well as concerning findings in late hilar region consistent with potential metastatic disease - S/p ERCP with biliary stent placement on 02/[address] Moulton - Consult radiation oncology while here: performance consultant films obtained 02/10, appreciate further assistance - plan for radiation therapy 02/12 Coronary artery disease: - s/p PCI in 11/2020. - Continue home Plavix and atorvastatin - Holding home regimen of Entresto Congestive heart failure: - Per her report, had some level of reduced EF after her TN. - Last reported echo from 03/2021 with EF 60%. - Cautious IV fluids in the setting of hypotension - Holding home Entresto, diuretic regimen Hypertension: - Holding home antihypertensive medications in the setting of hypotension Severe chronic obstructive pulmonary disease: - No wheezing on exam today. - Continue budesonide-formoterol (or formulary equivalent), and Accolate - Albuterol PRN Hypothyroidism: - TSH was 2.0 in 10/2021. No signs/symptoms of hypo-/hyperthyroidism. - Continue home Synthroid 75 mcg GERD (gastroesophageal reflux disease): - Continue PPI Dispo: MS and home hospice when ready Diet: Advance DVT ppx: Continue home eliquis CODE STATUS: DNR/DNI (2) Abdominal pain: (3) Coronary artery disease: (4) HTN (hypertension): (5) Hyperlipidemia: (6) Severe chronic obstructive pulmonary disease: (7) Congestive heart failure: Admission and Anticipated Discharge Date Admission Date: February 08, 2022 Supervising Physician Co-Signing Physician Notes I personally examined the patient and verified all schofield points of history and exam, discussed case, and agree with decision making with Dr Wong. Pain more up-and-down today. Family present. Extensive discussion. Right now they are not sure they can care for her at home in her present state without significantly more help. Vitals noted, in general she intermittently goes from no distress to grimacing in pain. HEENT normocephalic atraumatic mucous membranes moist. Breathing unlabored no accessory muscle use good effort. Skin shows no rashes no pallor or icterus. Abdominal painworse after eatingstill suspect predominantly biliary spasmcontinue to adjust pain regimenright now may need to preempt with pain meds before meals. Continue antibiotics for gram-negative bacteremia. Continue supportive care again Again probably 30 minutes spent in the room predominantly answering questions and addressing concerns. Otherwise as above. Subjective NAEO. Stressful night. Wondering why she was transitioned off telemetry and had to be moved. Understood reasoning following discussion -- underlying stress more seemed to be out of concern that she'd be undertreated in her new room. Wants to go home - feeling ready for it. Pain is improved compared to prior and highly responsive to Tylenol. Re-evaluated in the afternoon. Pain recurred following mealtime. Review of Systems Review of Systems: as per HPI Physical Exam Physical Exam: General: 86-year old female who is alert, oriented, and appears in no acute distress. HEENT: NCAT. - Eyes - Sclera are white, anicteric, and without injection. - Mouth - MMM - Neck - supple, no appreciable JVD Cardiac: Normal rate and regular rhythm; S1 and S2 present with no murmurs, rubs, or gallops. Pulmonary: Good respiratory effort with symmetric expansion of the chest. No use of accessory muscles. Lungs were clear to auscultation bilaterally with no crackles or wheezes. Abdominal: Normoactive bowel sounds. Abdomen is moderately distended; no rebound/guarding. +tymphanic Extremities: Upper and lower extremities are warm and well perfused. Psych: Well-developed, well-nourished, appropriately dressed for occasion. Behavior is cooperative and appropriate. Affect is WNL. Insight is appropriate. Results & Data Results & Data ([facility]) Vital Signs (Past 12 Hours) Vital Signs Temp Pulse Resp BP Pulse Ox 02/10/22 23:02 36.7 C 76 20 122/67 94 02/10/22 22:32 18 93 Resident Activity Tracking Resident Involvement: Resident Care Provided Care Provided: Adult [facility] Hospital Medicine
[2022-02-11] MEDS ORDERED: ACETAMINOPHEN 325 MG TAB PO PRN ×2 (07:05→13:23)
[2022-02-11] MEDS ORDERED: HYDROmorphone HCL 2 MG TAB PO PRN ×2 (07:05→13:30)
[2022-02-11 07:43] LABS: Eosinophils # (auto) 0.04 K/uL (0-0.5); Eosinophils % (auto) 0.4 %; Hematocrit (blood only) 28.3 % (37-47); Hemoglobin 9.6 g/dL (12.0-16.0); Immature Granulocytes # (auto) 0.05 K/uL (0.00-0.02); Immature Granulocytes % (auto) 0.5 %; Lymphocytes # (auto) 0.33 K/uL (1.2-3.4); Lymphocytes % (auto) 3.5 %; Mean Corpuscular Hemoglobin 30.9 pg (25-34); Mean Corpuscular Hgb Conc 33.9 g/dL (32-36); Mean Platelet Volume 11.5 fL (7.4-10.4); Monocytes # (auto) 0.59 K/uL (0.11-0.59); Monocytes % (auto) 6.2 %; Neutrophils # (auto) 8.45 K/uL (1.4-6.5); Neutrophils % (auto) 89.4 %; Platelet Count 137 K/uL (130-400); RDW Coefficient of Variation 16.7 % (11.5-14.5); RDW Standard Deviation 55.6 fL (36.4-46.3); Red Blood Count 3.11 M/uL (4.2-5.4); White Blood Count 9.46 K/uL (4.8-10.8)
[2022-02-11] MEDS: SUCRALFATE 1 GM/10 ML UDC PO SCH ×6 (08:00→20:21)
[2022-02-11 08:07] LABS: Albumin Globulin Ratio 1.1 (0.9-2); Albumin Level 2.6 gm/dl (3.4-5.0); Bilirubin,Total 1.6 mg/dl (0.2-1.0); Calcium 7.9 mg/dl (8.5-10.1); Creatinine Clr Calc Pharmacy 15.2 ml/min; Est GFR (African American) 22.5 ml/min; Est GFR (Non-African American) 19.4 ml/min; Globulin 2.4 gm/dl (2.5-4.0)
[2022-02-11] MEDS: CLOPIDOGREL BISULFATE 75 MG TAB PO SCH (08:16)
[2022-02-11] MEDS: APIXABAN 2.5 MG TAB PO SCH ×2 (08:17→20:17)
[2022-02-11] MEDS: BISOPROLOL FUMARATE 5 MG TAB PO SCH (08:17)
[2022-02-11] MEDS: SIMETHICONE 80 MG CHEW PO SCH ×3 (08:18→18:16)
[2022-02-11] MEDS: ZAFIRLUKAST 20 MG PO SCH ×2 (08:32→20:19)
[2022-02-11] MEDS: LACTATED RINGER'S 1,000 ML IV SCH ×2 (08:33→10:52)
[2022-02-11] MEDS: CEFEPIME 2,000 MG in SYRINGE 0 ML IV SCH (08:54)
[2022-02-11] MEDS: FAMOTIDINE 20 MG TAB PO SCH (10:10)
[2022-02-11] MEDS: PANTOprazole 40 MG TAB PO SCH (11:34)
--- NOTE | 2022-02-11 11:45 | Nephrology Progress Note ---
Date of Service February 11, 2022 Assessment & Plan (1) Acute renal failure: Plan: improving stage 3 RACHEL from ischemic ATN in patient with rapidly advancing pancreatic cancer and active ileus/ high grade SMA stenosis. >her admission creatinine 02/06 was 2.9; her peak creatinine was 02/08 at 3.4; her creatinine today is 2.25. Few OP data are available to establish a baseline; however on 01/26 as OP her creatinine was 1.2. And on December 26 and January 09 of this year, creatinine was 0.9 at [facility]. >was already w/ advancing though early renal failure earlier this month >now with severe RACHEL in setting of acceptable for now chemistries (though notable /slightly improved acidosis) and no obvious vol OL; also hx of renal ischemia presumably w/ A fib and RVR as well as lower BP ongoing through midday 02/09 >no IV contrast pls or nsaids; cont to hold entresto >Okay to stop fluids. From renal standpoint patient can be discharged with hospice Admission and Anticipated Discharge Date Admission Date: February 08, 2022 Subjective Seen for acute kidney injury. Main complaint is abdominal distention and nausea. Review of Systems Review of Systems: All other systems were reviewed and negative except as noted in HPI Physical Exam Physical Exam: General exam: Appears comfortable, no acute distress HEENT: Pupils are equal and reactive to light Neck: No JVD, neck is supple trachea is midline Respiratory system: Clear breath sounds bilaterally. Gastrointestinal: Abdomen is soft, +distended, non tender, bowel sounds are present CVS: Regular rate and rhythm. No murmurs, rubs or gallops Musculoskeletal: No joint or muscle tenderness Extremities: Non tender, no edema, peripheral pulses are present Neuro: Oriented, no tremors, no focal neurological deficits Skin: No rashes Results & Data ([facility]) Vital Signs (Past 12 Hours) Vital Signs Temp Pulse Resp BP Pulse Ox 02/11/22 11:01 36.6 C 72 16 120/67 95 02/11/22 07:55 36.4 C L 82 18 110/66 95 Laboratory Results 02/11/22 07:28 02/11/22 02/11/22 07:28 07:28 WBC 9.46 RBC 3.11 L MCV 91.0 MCH 30.9 MCHC 33.9 RDW Std Deviation 55.6 H RDW Coeff of Maral 16.7 H Plt Count 137 MPV 11.5 H Albumin 2.6 L
[2022-02-11] MEDS ORDERED: ONDANSETRON 4 MG OD TAB PO PRN (13:30)
[2022-02-11] MEDS ORDERED: HYDROmorphone INJ 0.5 MG/0.5 ML SYR IV PRN (13:32)
[2022-02-11] MEDS: ACETAMINOPHEN 325 MG TAB PO SCH (16:34)
[2022-02-11] MEDS: ATORVASTATIN 20 MG TAB PO SCH (20:17)
[2022-02-11] MEDS: FLUTICASONE/VILANTEROL 100/25MCG 14 PUFFS/INHALER INH SCH (20:18)
[2022-02-11 21:06] LABS: Appearance Urine Turbid (Clear); Bacteria Urine Automated Negative (Negative); Bilirubin Urine Negative (Negative); Blood Urine 1+ (Negative); Color Urine Dark Yellow; Epithelial Cell Urine Auto >30 /lpf (0-5); Glucose Urine UA Negative (Negative); Ketones Urine Trace (Negative); Leukocyte Esterase Urine 3+ (Negative); Nitrite Urine Negative (Negative); Protein Urine Trace (Negative); Urobilinogen Urine Negative (Negative); WBC Urine Automated >30 /hpf (0-5)
[2022-02-11 21:26] LABS: RBC Urine Automated 0-4 /hpf (0-4)
[2022-02-12] MEDS: SIMETHICONE 80 MG CHEW PO SCH ×4 (00:04→17:56)
[2022-02-12] MEDS: LEVOTHYROXINE SODIUM 75 MCG TABLET PO SCH (05:41)
--- NOTE | 2022-02-12 06:40 | Hospitalist Progress Note ---
Date of Service February 12, 2022 Assessment & Plan (1) Pancreatic cancer: Plan: Kristyn Alfaro is a 86-year-old female with pancreatic cancer presenting for biliary stent placement with Dr. Moulton on 02/06 following with associated weakness and nausea and vomiting. Abdominal pain and distention - - likely multifactorial: bowel & biliary dysmotility; cancer-related pain likely playing a role, as is dyspepsia. - Work-up as follows: - On 02/07: Lipase 976, Pro-Chacho 47, WBC 18 - CT-A/P 02/09: Increase in size of pancreatic mass, biliary stent visualized with pneumobilia, fluid-filled loops of bowel c/w ileus vs. gastroenteritis. - US mesenteric (02/08): demonstrating patent SMA, with pneumobilia - Reflux Discomfort: Pepcid 20 b.i.d., Protonix 40mg daily, Tums PRN, Simethicone q6h - Spasm-related Pain: Tylenol 650 AC and q6h PRN > Hydromorphone 1mg PO PRN > Hydromorphone 0.5mg IV q4h --> Can consider adding scheduled hydromorphone with meals if spastic pain continues RACHEL - improving without h/o CKD or renal failure - Presented 02/06 with Cr 2.92 with subsequent peak to 3.38 on 02/08 --> now downtrending on day-by-day labs - FENa < 1% -- in setting of recent n/v/anorexia [employer], likely prerenal and ATN- component. Also possible superimposed with insult from ARB. Lower suspicion for post-renal. - CT-A/P (02/08): Limited study given non-contrast, but no e/o gross renal mass/calcs/hydro - Nephrology previously consulted - appreciate insight, recommendations, monitoring - Avoid nephrotoxic medications -- will have to be mindful with hospice analgesic regimen given this after d/c, continue hydromorphone for now Pancreatic cancer: - Diagnosed in 12/2021. Has seen palliative care recently. Patient is not interested in chemotherapy, but reports she has plans to see radiation oncology. - PET Scan from 02/04 demonstrating partial gastric outlet obstruction due to pancreatic mass as well as concerning findings in late hilar region consistent with potential metastatic disease - S/p ERCP with biliary stent placement on 02/[address] Moulton - Consult radiation oncology while here: pharmaceutical plant operator films obtained 02/10, appreciate further assistance - plan for radiation therapy 02/12 at 1400 E. coli Bacteremia - BCX now demonstrating growth of E. coli resistant to ciprofloxacin - suspect sec to bowel heidi translocation rather than stent infection given clinical/laboratory improvement - CFTX daily, end 02/16 - Can likely transition to cefdinir if leaving hospital before 02/16 Paroxysmal atrial fibrillation - - RVR on 02/08 with rates into the 160s, in the setting of hypotension - converted back to sinus rhythm after dose of 0.125mg Digoxin and 150mg IV bolus of amiodarone - restart home bisoprolol dosing - continue Eliquis Coronary artery disease: - s/p PCI in 11/2020. - Continue home Plavix and atorvastatin - Holding home regimen of Entresto Congestive heart failure: - Per her report, had some level of reduced EF after her MA. - Last reported echo from 03/2021 with EF 60%. - Cautious IV fluids in the setting of hypotension - Holding home Entresto, diuretic regimen Hypertension: - Holding home antihypertensive medications in the setting of hypotension Severe chronic obstructive pulmonary disease: - No wheezing on exam today. - Continue budesonide-formoterol (or formulary equivalent), and Accolate - Albuterol PRN Hypothyroidism: - TSH was 2.0 in 10/2021. No signs/symptoms of hypo-/hyperthyroidism. - Continue home Synthroid 75 mcg GERD (gastroesophageal reflux disease): - Continue PPI Dispo: [place] and home hospice when ready Diet: Advance as tolerated DVT ppx: Continue home eliquis CODE STATUS: DNR/DNI (2) Abdominal pain: (3) Coronary artery disease: (4) HTN (hypertension): (5) Hyperlipidemia: (6) Severe chronic obstructive pulmonary disease: (7) Congestive heart failure: Admission and Anticipated Discharge Date Admission Date: February 08, 2022 Supervising Physician Co-Signing Physician Notes I personally examined the patient and verified all schofield points of history and exam, discussed case, and agree with decision making with Dr Wong. Epigastric burning pain earlierresolved with GI medicines. Also had a degree of shortness of breath whenever we entered the room, followed by a nonproductive cough. Vitals noted, in general she is awake and alert initially appears anxious and a little bit of distress, later is in no distress, but does have a little bit of a nonproductive cough. HEENT normocephalic atraumatic mucous membranes moist. Breathing unlabored lungs are clear without rales rhonchi or wheezes good effort. Pulse ox is 95 to 96% on room air with a pulse of 69, skin without rashes pallor or icterus. EKG with left bundle branch block which is not new, chest x-ray with small effusions but no other acute findings. sob - suspect anxiety + reflux w some overflow causing cough and a sensation of dyspnea. Offered lengthy explanation and reassurance, empathy and support, treat GI symptoms as well. Abdominal painmultifactorialcontinue to treat, titrate regimen, continue to identify different causes of pain and educate patient and family about such. Gram-negative bacteremiacontinue ceftriaxone Again probably 30 minutes spent in the room predominantly answering questions and addressing concerns. Otherwise as above. Subjective Required Tylenol once after dinner. Required Dilaudid once PO, then IV (approx. 15 min later after PO) early this AM. Seen at bedside, really not feeling great. Reporting 10/10 "burning type pain that's different from the belly pain" that is coming up her throat assoc. w/ coughing. She feels it is reflux. Also reports that the Dilaudid isn't helping and is actually making her feel worse from the perspective of grogginess. She tells me "I'm ready and just want to ." When asking if she's referring to the pain specifically, she says "no, just everything, I'm not myself and I can't do anything I used to." Patient's RN and I were in frequent communication during all changes of care and we did a bedside round together. Review of Systems Review of Systems: as per HPI Physical Exam Physical Exam: General: 86-year old female who is alert, oriented, and in moderate distress secondary to burning-like pain discomfortg. HEENT: NCAT. - Eyes - Sclera are white, anicteric, and without injection. - Mouth - MMM - Neck - supple, no appreciable JVD Cardiac: Normal rate and regular rhythm; S1 and S2 present with no murmurs, rubs, or gallops. Pulmonary: Good respiratory effort with symmetric expansion of the chest. No use of accessory muscles. Lungs were clear to auscultation bilaterally with no crackles or wheezes. Abdominal: Normoactive bowel sounds. Abdomen is moderately distended; no rebound/guarding. +tympanic Extremities: Upper and lower extremities are warm and well perfused. Psych: Well-developed, well-nourished, appropriately dressed for occasion. Behavior is cooperative and appropriate. Affect is WNL. Insight is appropriate. Results & Data Results & Data ([facility]) Vital Signs (Past 12 Hours) Vital Signs Temp Pulse Resp BP Pulse Ox 02/11/22 22:40 36.6 C 72 18 114/55 L 95 Resident Activity Tracking Resident Involvement: Resident Care Provided Care Provided: Adult Hospital Medicine
[2022-02-12] MEDS ORDERED: HYDROmorphone HCL 2 MG TAB PO SCH (07:30)
[2022-02-12] MEDS: ACETAMINOPHEN 325 MG TAB PO SCH ×3 (07:34→16:34)
[2022-02-12] MEDS: PANTOprazole 40 MG TAB PO SCH (07:37)
[2022-02-12] MEDS: FAMOTIDINE 20 MG TAB PO SCH (07:37)
[2022-02-12] MEDS: SUCRALFATE 1 GM/10 ML UDC PO SCH ×5 (07:38→20:37)
[2022-02-12] MEDS ORDERED: HYDROmorphone INJ 0.5 MG/0.5 ML SYR IV PRN (07:43)
[2022-02-12 08:39] LABS: Basophils # (auto) 0.02 K/uL (0-0.2); Basophils % (auto) 0.2 %; Eosinophils # (auto) 0.06 K/uL (0-0.5); Eosinophils % (auto) 0.5 %; Hematocrit (blood only) 31.3 % (37-47); Hemoglobin 10.2 g/dL (12.0-16.0); Immature Granulocytes # (auto) 0.08 K/uL (0.00-0.02); Immature Granulocytes % (auto) 0.7 %; Lymphocytes # (auto) 0.44 K/uL (1.2-3.4); Lymphocytes % (auto) 3.9 %; Mean Corpuscular Hemoglobin 30.8 pg (25-34); Mean Corpuscular Hgb Conc 32.6 g/dL (32-36); Mean Corpuscular Volume 94.6 fL (80-100); Mean Platelet Volume 12.2 fL (7.4-10.4); Monocytes # (auto) 1.09 K/uL (0.11-0.59); Monocytes % (auto) 9.7 %; Neutrophils # (auto) 9.55 K/uL (1.4-6.5); Platelet Count 156 K/uL (130-400); RDW Coefficient of Variation 17.2 % (11.5-14.5); RDW Standard Deviation 59.7 fL (36.4-46.3); Red Blood Count 3.31 M/uL (4.2-5.4); White Blood Count 11.24 K/uL (4.8-10.8)
[2022-02-12] MEDS ORDERED: FAMOTIDINE 20 MG TAB PO SCH (09:00)
[2022-02-12 09:06] LABS: Albumin Level 2.6 gm/dl (3.4-5.0); BUN Creatinine Ratio 23.4 (10-20); Bilirubin,Total 1.6 mg/dl (0.2-1.0); Est GFR (African American) 23.9 ml/min; Est GFR (Non-African American) 20.6 ml/min; Globulin 2.6 gm/dl (2.5-4.0); Total Protein 5.2 gm/dl (6.0-8.3)
[2022-02-12] MEDS: cefTRIAXone SODIUM 2,000 MG in DEXTROSE 5% 50 ML IV SCH (09:10)
[2022-02-12] MEDS: ZAFIRLUKAST 20 MG PO SCH ×2 (09:16→20:37)
[2022-02-12] MEDS: CALCIUM CARBONATE 500 MG CHEWABLE TAB PO PRN ×2 (09:16→18:31)
[2022-02-12] MEDS: APIXABAN 2.5 MG TAB PO SCH ×2 (09:17→20:39)
[2022-02-12] MEDS: BISOPROLOL FUMARATE 5 MG TAB PO SCH (09:18)
[2022-02-12] MEDS: CLOPIDOGREL BISULFATE 75 MG TAB PO SCH (09:18)
[2022-02-12] MEDS: ALBUTEROL HFA 8 GM INHALER INH PRN ×2 (11:52→21:08)
[2022-02-12] MEDS ORDERED: CALCIUM CARBONATE 500 MG CHEWABLE TAB PO ONE (12:26)
[2022-02-12] MEDS: LIDOCAINE VISCOUS 2% 15 ML UDC PO ONE ×2 (13:24→14:21)
--- NOTE | 2022-02-12 14:44 | XRay Report ---
XR chest 2V PA/lateral CLINICAL HISTORY: sob TECHNIQUE: 2 views of the chest were obtained. Comparison: Comparison is made to chest radiograph 12/26/2021 FINDINGS: Lead pacemaker versus loop recorder is unchanged. Cardiomegaly is noted. The lungs are clear. Small b ilateral pleural effusions are seen. IMPRESSION: Small bilateral pleural effusions are seen. No evidence of pneumonia or significant pulmonary edema. ACT 112: Negative or not required by law. Electronically signed by: Vivek Hernandez M.D. 02/12/2022 2:43 PM
[2022-02-12] MEDS: HYDROmorphone HCL 2 MG TAB PO PRN (17:55)
--- NOTE | 2022-02-12 18:54 | Billing Data ---
Date of Service February 11, 2022 Coding Level of Care Code 27927 Subseq Hosp Care Lvl 3
--- NOTE | 2022-02-12 19:01 | Billing Data ---
Date of Service February 12, 2022 Coding Level of Care Code 97546 Subseq Hosp Care Lvl 3
[2022-02-12] MEDS: FLUTICASONE/VILANTEROL 100/25MCG 14 PUFFS/INHALER INH SCH (20:39)
[2022-02-12] MEDS: ATORVASTATIN 20 MG TAB PO SCH (20:39)
[2022-02-13] MEDS: SIMETHICONE 80 MG CHEW PO SCH ×4 (01:54→19:44)
[2022-02-13] MEDS: SUCRALFATE 1 GM/10 ML UDC PO SCH ×4 (06:29→21:38)
[2022-02-13] MEDS: LEVOTHYROXINE SODIUM 75 MCG TABLET PO SCH (06:31)
[2022-02-13] MEDS: ACETAMINOPHEN 325 MG TAB PO SCH ×3 (06:31→18:13)
[2022-02-13] MEDS ORDERED: ALBUT/IPRATROP 3MG/0.5MG NEB 3 ML VIAL NEB PRN (06:45)
[2022-02-13] MEDS ORDERED: LORazepam 0.25 MG in SYRINGE 0.125 ML IV STA ×2 (07:28→13:35)
--- NOTE | 2022-02-13 07:47 | Electrocardiogram Report ---
Test Reason : Blood Pressure : / mmHG Vent. Rate : 074 BPM Atrial Rate : 074 BPM P-R Int : 180 ms QRS Dur : 134 ms QT Int : 432 ms P-R-T Axes : 085 -09 089 degrees QTc Int : 479 ms Normal sinus rhythm Left bundle branch block Abnormal ECG When compared with ECG of 26-DEC-2021 02:43, QRS axis Shifted right QRS voltage has decreased Confirmed by Keith Turner ([id number]) on 02/13/2022 7:47:34 AM Referred By: Anisha Moulton Confirmed By:Keith Turner
[2022-02-13] MEDS: FLUTICASONE/VILANTEROL 100/25MCG 14 PUFFS/INHALER INH SCH (09:00)
[2022-02-13 09:06] LABS: BUN Creatinine Ratio 22.9 (10-20); Calcium 8.3 mg/dl (8.5-10.1); Creatinine Clr Calc Pharmacy 14.3 ml/min; Est GFR (African American) 20.8 ml/min; Est GFR (Non-African American) 17.9 ml/min; Potassium 3.6 mmol/L (3.5-5.1)
[2022-02-13] MEDS: BISOPROLOL FUMARATE 5 MG TAB PO SCH (10:20)
[2022-02-13] MEDS: PANTOprazole 40 MG TAB PO SCH (10:20)
[2022-02-13] MEDS: FAMOTIDINE 20 MG TAB PO SCH (10:21)
[2022-02-13] MEDS: CLOPIDOGREL BISULFATE 75 MG TAB PO SCH (10:22)
[2022-02-13] MEDS: APIXABAN 2.5 MG TAB PO SCH ×2 (10:23→21:31)
[2022-02-13] MEDS: ZAFIRLUKAST 20 MG PO SCH ×2 (10:24→21:32)
[2022-02-13] MEDS: cefTRIAXone SODIUM 2,000 MG in DEXTROSE 5% 50 ML IV SCH (10:27)
[2022-02-13] MEDS: HYDROmorphone HCL 2 MG TAB PO PRN (10:44)
--- NOTE | 2022-02-13 10:51 | Hospitalist Progress Note ---
Date of Service February 13, 2022 Assessment & Plan (1) Pancreatic cancer: Plan: Kristyn Alfaro is a 86-year-old female with pancreatic cancer presenting for biliary stent placement with Dr. Moulton on 02/06 following with associated weakness and nausea and vomiting. She remains in the hospital for analgesia regimenting and establishment prior to being discharged home on hospice. Goals of Care - Patient will be transitioning to hospice following discharge from the hospital - Extensive time spent educating family about expectations of good days/bad days, clarifying types of pain and appropriate treatment, and expectations - Family understanding that following discharge from hospital, likely will not be continuing radiation therapy given difficulties of transportation -- and this aligns w/ their goals - Will provide education as appropriate on expectations for final days/weeks of life - Judicious use of Ativan (in small doses) given prior bouts of delirium in the hospital Abdominal pain and distention - - likely multifactorial: bowel & biliary dysmotility; cancer-related pain likely playing a role, as is dyspepsia. - Work-up as follows: - On 02/07: Lipase 976, Pro-Chacho 47, WBC 18 - CT-A/P 02/09: Increase in size of pancreatic mass, biliary stent visualized with pneumobilia, fluid-filled loops of bowel c/w ileus vs. gastroenteritis. 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 Also possible superimposed with insult from ARB. Lower suspicion for post-renal. - CT-A/P (02/08): Limited study given non-contrast, but no e/o gross renal mass/calcs/hydro - Nephrology previously consulted - appreciate insight, recommendations, monitoring - Avoid nephrotoxic medications -- will have to be mindful with hospice analgesic regimen given this after d/c, continue hydromorphone for now Pancreatic cancer: - Diagnosed in 12/2021. Has seen palliative care recently. Patient is not interested in chemotherapy, but reports she has plans to see radiation oncology. - PET Scan from 02/04 demonstrating partial gastric outlet obstruction due to pancreatic mass as well as concerning findings in late hilar region consistent with potential metastatic disease - S/p ERCP with biliary stent placement on 02/[address] Moulton - Consult radiation oncology while here: s/p radiation therapy 02/12 at 1400 E. coli Bacteremia - BCX now demonstrating growth of E. coli resistant to ciprofloxacin - suspect sec to bowel heidi translocation rather than stent infection given clinical/laboratory improvement - CFTX daily, end 02/16 - Can likely transition to cefdinir if leaving hospital before 02/16 Paroxysmal atrial fibrillation - - RVR on 02/08 with rates into the 160s, in the setting of hypotension - converted back to sinus rhythm after dose of 0.125mg Digoxin and 150mg IV bolus of amiodarone - restart home bisoprolol dosing - continue Eliquis Coronary artery disease: - s/p PCI in 11/2020. - Continue home Plavix and atorvastatin - Holding home regimen of Entresto Congestive heart failure: - Per her report, had some level of reduced EF after her [place]. - Last reported echo from 03/2021 with EF 60%. - Cautious IV fluids in the setting of hypotension - Holding home Entresto, diuretic regimen Hypertension: - Holding home antihypertensive medications in the setting of hypotension Severe chronic obstructive pulmonary disease: - No wheezing on exam today. - Continue budesonide-formoterol (or formulary equivalent), and Accolate - Albuterol PRN Hypothyroidism: - TSH was 2.0 in 10/2021. No signs/symptoms of hypo-/hyperthyroidism. - Continue home Synthroid 75 mcg GERD (gastroesophageal reflux disease): - Continue PPI Dispo: [facility] and home hospice when ready Diet: Advance as tolerated DVT ppx: Continue home eliquis CODE STATUS: DNR/DNI (2) Abdominal pain: (3) Coronary artery disease: (4) HTN (hypertension): (5) Hyperlipidemia: (6) Severe chronic obstructive pulmonary disease: (7) Congestive heart failure: Admission and Anticipated Discharge Date Admission Date: February 08, 2022 Supervising Physician Co-Signing Physician Notes I personally examined the patient and verified all schofield points of history and exam, discussed case, and agree with decision making with Dr Wong. Pain still up and down some.. Vitals noted, in general she is awake and alert pleasant and is in no distress. HEENT normocephalic atraumatic mucous membranes moist. Breathing unlabored no accessory muscle use good effort. Skin shows no rashes no pallor or icterus. Neuro without focal deficits. sob - suspect anxiety + reflux w some overflow causing cough and a sensation of dyspnea. 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 No pain. This morning, did wake up feeling short of breath -- like "an asthma attack." SpO2 in low-mid 90s with NC, albuterol, and DuoNebs given. At bedside, patient reported feeling anxious and as if she couldn't breath. Reports "I'm so tired of everything, I just want to ." [place] much better after small dose of Ativan and was able to eat breakfast. Denies pain. Review of Systems Review of Systems: as per HPI Physical Exam Physical Exam: General: 86-year old female who is alert, oriented, and in moderate distress secondary to feelings of anxiety and shortness of breath. HEENT: NCAT. - Eyes - Sclera are white, anicteric, and without injection. - Mouth - MMM - Neck - supple, no appreciable JVD Cardiac: Normal rate and regular rhythm; S1 and S2 present with no murmurs, rubs, or gallops. Pulmonary: NC in place. Good respiratory effort with symmetric expansion of the chest - slightly tachypneic. No use of accessory muscles. Lungs were clear to auscultation bilaterally with no crackles or wheezes. Abdominal: Normoactive bowel sounds. Abdomen is moderately distended; no rebound/guarding. +tympanic Extremities: Upper and lower extremities are warm and well perfused. Results & Data Results & Data ([facility]) Vital Signs (Past 12 Hours) Vital Signs Temp Pulse Resp BP BP Pulse Ox 02/13/22 07:54 36.9 C 89 20 90/46 L 20 L 02/13/22 07:04 86 20 95 02/13/22 04:12 36.5 C 79 16 126/71 91 02/12/22 22:53 36.7 C 78 16 91/49 L 92 Resident Activity Tracking Resident Involvement: Resident Care Provided Care Provided: Adult Hospital Medicine
[2022-02-13] MEDS ORDERED: NALOXONE HCL 0.4 MG/1 ML VIAL/CARP IV PRN (16:07)
[2022-02-13] MEDS ORDERED: HYDROmorphone PCA 30 MG/30 ML IV PRN ×2 (16:07→16:20)
[2022-02-13] MEDS ORDERED: LIDOCAINE VISCOUS 2% 15 ML UDC PO PRN ×2 (16:13→16:14)
--- NOTE | 2022-02-13 17:13 | Billing Data ---
Date of Service February 13, 2022 Coding Level of Care Code 15273 Subseq Hosp Care Lvl 3
[2022-02-13] MEDS: SODIUM CHLORIDE 0.9% 1000ML 1,000 ML IV SCH (17:16)
--- NOTE | 2022-02-13 20:46 | Communication Note ---
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 On my assessment, patient is satisfied w/ the pain relief from the DOT COMPLIANCE SPECIALIST, 2-3/10 discomfort and a smoother pattern of the pain. She looks awake and is conversing during my exam. plan: No changes to DOT COMPLIANCE SPECIALIST or alarm settings. Instructed patient to take crawley breaths when able. Ordered incentive spirometer.
[2022-02-13] MEDS: ATORVASTATIN 20 MG TAB PO SCH (21:32)
[2022-02-14] MEDS: SIMETHICONE 80 MG CHEW PO SCH ×4 (02:30→17:17)
[2022-02-14] MEDS: ACETAMINOPHEN 325 MG TAB PO SCH ×3 (05:40→16:20)
[2022-02-14] MEDS: LEVOTHYROXINE SODIUM 75 MCG TABLET PO SCH (05:40)
[2022-02-14] MEDS: SUCRALFATE 1 GM/10 ML UDC PO SCH ×4 (06:27→23:49)
[2022-02-14] MEDS: ZAFIRLUKAST 20 MG PO SCH ×2 (08:10→23:49)
[2022-02-14] MEDS: BISOPROLOL FUMARATE 5 MG TAB PO SCH (08:11)
[2022-02-14] MEDS: APIXABAN 2.5 MG TAB PO SCH ×2 (08:11→23:48)
[2022-02-14] MEDS: CLOPIDOGREL BISULFATE 75 MG TAB PO SCH (08:11)
[2022-02-14 08:12] LABS: BUN Creatinine Ratio 23.8 (10-20); Calcium 8.2 mg/dl (8.5-10.1); Creatinine Clr Calc Pharmacy 14.3 ml/min; Est GFR (African American) 19.6 ml/min; Est GFR (Non-African American) 16.9 ml/min; Potassium 4.1 mmol/L (3.5-5.1)
[2022-02-14] MEDS: FAMOTIDINE 20 MG TAB PO SCH (08:12)
[2022-02-14] MEDS: PANTOprazole 40 MG TAB PO SCH (08:12)
[2022-02-14] MEDS: FLUTICASONE/VILANTEROL 100/25MCG 14 PUFFS/INHALER INH SCH (08:12)
[2022-02-14] MEDS: cefTRIAXone SODIUM 2,000 MG in DEXTROSE 5% 50 ML IV SCH (09:06)
--- NOTE | 2022-02-14 12:50 | Hospitalist Progress Note ---
Date of Service February 14, 2022 Assessment & Plan (1) Pancreatic cancer: Plan: Kristyn Alfaro is a 86-year-old female with pancreatic cancer presenting for biliary stent placement with Dr. Moulton on 02/06 following with associated weakness and nausea and vomiting. She remains in the hospital for analgesia regimenting and establishment prior to being discharged home on hospice. Goals of Care - Patient will be transitioning to hospice following discharge from the hospital, if she does not decline sooner leading to passing as an inpatientand with her sudden turn towards excessive and oppressive fatigue, I did discuss with patient and family that this might be a possibility, and to try to prevent a fear of the unknown I outlined to the best of my ability what often happens during the dying process. - Judicious use of Ativan (in small doses) for anxiety attacks given prior bouts of delirium in the hospital Abdominal pain and distention - - likely multifactorial: bowel & biliary dysmotility; cancer-related pain likely playing a role, as is dyspepsia. - Work-up as follows: - On 02/07: Lipase 976, Pro-Chacho 47, WBC 18 - CT-A/P 02/09: Increase in size of pancreatic mass, biliary stent visualized with pneumobilia, fluid-filled loops of bowel c/w ileus vs. gastroenteritis. 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 Also possible superimposed with insult from ARB. Lower suspicion for post-renal. - CT-A/P (02/08): Limited study given non-contrast, but no e/o gross renal mass/calcs/hydro - Nephrology previously consulted - appreciate insight - Avoid nephrotoxic medications -- will have to be mindful with hospice analgesic regimen given this after d/c, continue hydromorphone for now Pancreatic cancer: - Diagnosed in 12/2021. Has seen palliative care recently. Patient is not interested in chemotherapy, but reports she has plans to see radiation oncology. - PET Scan from 02/04 demonstrating partial gastric outlet obstruction due to pancreatic mass as well as concerning findings in late hilar region consistent with potential metastatic disease - S/p ERCP with biliary stent placement on 02/[address] Moulton - ongoing XRT for pain control E. coli Bacteremia - BCX now demonstrating growth of E. coli resistant to ciprofloxacin - suspect sec to bowel heidi translocation rather than stent infection given clinical/laboratory improvement - CFTX daily - Can likely transition to cefdinir if leaving hospital although this might not be possible with her appearance of starting to decline further Paroxysmal atrial fibrillation - - rate controlled - continue Eliquis Coronary artery disease: - s/p PCI in 11/2020. - Continue home Plavix and atorvastatin - Holding home regimen of Entresto, no angina Congestive heart failure: - Per her report, had some level of reduced EF after her [place]. - Last reported echo from 03/2021 with EF 60%. - no evidence of decompensation Hypertension: - BP acceptable given the situation Severe chronic obstructive pulmonary disease: - breathing has been stable - at bedside assessment several times the last few days dyspnea episodes have been far more c/w anxiety Hypothyroidism: - TSH was 2.0 in 10/2021. No signs/symptoms of hypo-/hyperthyroidism. - Continue home Synthroid 75 mcg GERD (gastroesophageal reflux disease): - Continue PPI Dispo: [place] and home hospice when ready Diet: Advance as tolerated DVT ppx: Continue home eliquis CODE STATUS: DNR/DNI Admission and Anticipated Discharge Date Admission Date: February 08, 2022 Subjective When I first saw her this morning she was sleeping comfortably. Touch base with nursingthey noted she had done pretty well through the night only needing the LENS GRINDER APPRENTICE maybe 2-3 clicks, and pain appearing controlled, pain continues to appear controlled this morning. Later I revisit whenever family is present. She notes that she does not have pain, but that she feels a very oppressive fatigue and weakness that seems to be new and worsening. No appetite. No other acute complaints. Review of Systems Review of Systems: All systems reviewed & are unremarkable except as noted in HPI & below Physical Exam Physical Exam: In general she is awake and alert but fatigued and frail no distress. HEENT normocephalic atraumatic mucous membranes moist. Breathing unlabored no accessory muscle use good effort. Skin shows no rashes no pallor or icterus. Neuro without focal deficits. Results & Data Results & Data ([facility]) Vital Signs (Past 12 Hours) Vital Signs Temp Pulse Resp BP BP Pulse Ox 02/14/22 11:17 97.7 F 70 16 101/63 96 02/14/22 07:21 98.1 F 71 18 93/60 L 96 02/14/22 04:18 98.1 F 76 16 116/63 92 PG Care Time/CCT Total # of Minutes Spent Total Time Spent with Patient: Total time spent is greater than 50% in coordination of care (as documented) at patient's floor/unit and/or counseling patient: Coding Level of Care Code 33009 Subseq Hosp Care Lvl 3 Diagnoses Pancreatic cancer C25.9
--- NOTE | 2022-02-14 12:54 | Billing Data ---
Date of Service February 14, 2022 Coding Level of Care Code 92194 Subseq Hosp Care Lvl 3
[2022-02-14] MEDS: SODIUM CHLORIDE 0.9% 1000ML 1,000 ML IV SCH (16:14)
[2022-02-14] MEDS: ATORVASTATIN 20 MG TAB PO SCH (23:49)
[2022-02-15] MEDS: SIMETHICONE 80 MG CHEW PO SCH ×2 (00:45→07:37)
[2022-02-15] MEDS: GLYCOPYRROLATE 0.2 MG/ML VIAL IV SCH ×3 (06:34→11:15)
[2022-02-15] MEDS: LEVOTHYROXINE SODIUM 75 MCG TABLET PO SCH (06:34)
[2022-02-15] MEDS: SUCRALFATE 1 GM/10 ML UDC PO SCH ×2 (07:37→11:29)
[2022-02-15] MEDS: ACETAMINOPHEN 325 MG TAB PO SCH ×2 (07:37→11:29)
[2022-02-15] MEDS: ZAFIRLUKAST 20 MG PO SCH (08:30)
[2022-02-15] MEDS: APIXABAN 2.5 MG TAB PO SCH (08:30)
[2022-02-15] MEDS: cefTRIAXone SODIUM 2,000 MG in DEXTROSE 5% 50 ML IV SCH (08:30)
[2022-02-15] MEDS: PANTOprazole 40 MG TAB PO SCH (08:30)
[2022-02-15] MEDS: BISOPROLOL FUMARATE 5 MG TAB PO SCH (08:30)
[2022-02-15] MEDS: CLOPIDOGREL BISULFATE 75 MG TAB PO SCH (08:30)
[2022-02-15] MEDS: FAMOTIDINE 20 MG TAB PO SCH (08:30)
[2022-02-15] MEDS: FLUTICASONE/VILANTEROL 100/25MCG 14 PUFFS/INHALER INH SCH (08:30)
[2022-02-15] MEDS ORDERED: SCOPOLAMINE 1 MG TDSY TD SCH (09:00)
[2022-02-15] MEDS ORDERED: LORazepam 0.25 MG in SYRINGE 0.125 ML IV PRN (09:01)
--- NOTE | 2022-02-15 14:44 | Death Pronouncement Note ---
Date of Service February 15, 2022 Pronouncement Note Admission Date Admission Date: February 08, 2022 Date and Time of Date of : 02/15/22 Time of : 12:10 Contributing Factors (1) Pancreatic cancer: Contributing factors: see below Hospital Course Hospital Course: after feeling notably weaker yesterday and the expected/usual course of the dying process outlined with pt and family so as to allow for less unknown and more expectations on how the situation usually unfolds, patient apparently was able to see family from [place] yesterday afternoon. shortly thereafter she apparently then quickly became less and less responsive. when seen earlier in the day today, was unresponsive with some gurgling in respirations, but no signs of respiratory distress. she then passed quickly today - seen @12:10pm - no response to stimuli, no heart tones/pulses, no breath sounds/spontaneous respirations, pupils fixed and nonreactive, time of 12:10pm, 02/15/22. condolences and support offered to family last assessment and plan from progress note 02/14/22: (1) Pancreatic cancer: Plan: Kristyn Alfaro is a 86-year-old female with pancreatic cancer presenting for biliary stent placement with Dr. Moulton on 02/06 following with associated weakness and nausea and vomiting. She remains in the hospital for analgesia regimenting and establishment prior to being discharged home on hospice. Goals of Care - Patient will be transitioning to hospice following discharge from the hospital, if she does not decline sooner leading to passing as an inpatientand with her sudden turn towards excessive and oppressive fatigue, I did discuss with patient and family that this might be a possibility, and to try to prevent a fear of the unknown I outlined to the best of my ability what often happens during the dying process. - Judicious use of Ativan (in small doses) for anxiety attacks given prior bouts of delirium in the hospital Abdominal pain and distention- - likely multifactorial: bowel & biliary dysmotility; cancer-related pain likely playing a role, as is dyspepsia. - Work-up as follows: - On 02/07: Lipase 976, Pro-Chacho 47, WBC 18 - CT-A/P 02/09: Increase in size of pancreatic mass, biliary stent visualized with pneumobilia, fluid-filled loops of bowel c/w ileus vs. gastroenteritis. 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 Also possible superimposed with insult from ARB. Lower suspicion for post-renal. - CT-A/P (02/08): Limited study given non-contrast, but no e/o gross renal mass/calcs/hydro - Nephrology previously consulted - appreciate insight - Avoid nephrotoxic medications --will have to be mindful with hospice analgesic regimen given this after d/c, continue hydromorphone for now Pancreatic cancer: - Diagnosed in 12/2021. Has seen palliative care recently. Patient is not interested in chemotherapy, but reports she has plans to see radiation oncology. - PET Scan from 02/04 demonstrating partial gastric outlet obstruction due to pancreatic mass as well as concerning findings in late hilar region consistent with potential metastatic disease - S/p ERCP with biliary stent placement on 02/[address] Moulton - ongoing XRT for pain control E. coli Bacteremia - BCX now demonstrating growth of E. coli resistant to ciprofloxacin - suspect sec to bowel heidi translocation rather than stent infection given clinical/laboratory improvement - CFTX daily - Can likely transition to cefdinir if leaving hospital although this might not be possible with her appearance of starting to decline further Paroxysmal atrial fibrillation- - rate controlled - continue Eliquis Coronary artery disease: - s/p PCI in 11/2020. - Continue home Plavix and atorvastatin - Holding home regimen of Entresto, no angina Congestive heart failure: - Per her report, had some level of reduced EF after her [place]. - Last reported echo from 03/2021 with EF 60%. - no evidence of decompensation Hypertension: - BP acceptable given the situation Severe chronic obstructive pulmonary disease: - breathing has been stable - at bedside assessment several times the last few days dyspnea episodes have been far more c/w anxiety Hypothyroidism: - TSH was 2.0 in 10/2021. No signs/symptoms of hypo-/hyperthyroidism. - Continue home Synthroid 75 mcg GERD (gastroesophageal reflux disease): - Continue PPI Dispo: [place] and home hospice when ready Diet: Advance as tolerated DVT ppx: Continue home eliquis CODE STATUS: DNR/DNI Additional Data Attending physician: Cecil Zamarripa DO Coding Level of Care Code D/C DAY MANAGEMENT <30 MINS Diagnoses Pancreatic cancer C25.9
[2022-02-15] MEDS ORDERED: CHECK SCOPOLAMINE PATCH PLACEMENT SCH (16:00)
== END 2022-02-15 14:10 | disposition expired | DRG 435 ==
LOC: ASU 09:47 → 3W 09:47 → SUATTDRO 15:06 → 2S 02-07 00:13 → SUATTDRO 02-08 10:05 → 2S 02-08 16:16 → 2W 02-10 17:46